=== PATIENT | female | born 1960 | race Caucasian/White ===

== ENCOUNTER → 2016-05-18 | Outpatient (CLI) | payer OTHER ==
[~2016-05-18] MED LIST: ADVAIR DISKUS; ALBU83IN INH; BACT2OIN2 TOP; DEPA1TAB3 PO; FLON0.054; LIDO1PAD EX; LISI-538 PO; NEUR100C PO; OMEP20CA3 PO; ROBA750T4 PO; TIZA2CAP3 PO; TRAM50TA2 PO; VITA500019 PO; VITA50003 PO; ZONI25CA2 PO
[2016-05-18 18:44] LABS: ALBUMIN 3.7 GM/DL (3.2-5.2); ALBUMIN/GLOBULIN RATIO 1.28 (1.00-1.93); ALKALINE PHOSPHATASE 71 U/L (45-117); ALT/SGPT 18 U/L (12-78); ANION GAP 10 MEQ/L (8-16); AST/SGOT 11 U/L (15-37); BILIRUBIN,TOTAL 0.3 MG/DL (0.2-1.0); BLOOD UREA NITROGEN 18 MG/DL (7-18); CALCIUM LEVEL 8.6 MG/DL (8.5-10.1); CARBON DIOXIDE LEVEL 23 MEQ/L (21-32); CHLORIDE LEVEL 107 MEQ/L (98-107); CHOLESTEROL LEVEL 216 MG/DL (<200); CREATININE FOR GFR 0.84 MG/DL (0.55-1.02); GLOMERULAR FILTRATION RATE > 60.0 (>51); GLUCOSE, FASTING 80 MG/DL (70-105); POTASSIUM SERUM 4.3 MEQ/L (3.5-5.1); SODIUM LEVEL 140 MEQ/L (136-145); TOTAL PROTEIN 6.6 GM/DL (6.4-8.2); TRIGLYCERIDES LEVEL 161 MG/DL (<150)
== END ==
LOC: M LAB 15:53
PROVIDERS: ATTEND Physician Assistant Medical
DX: I10 Essential (primary) hypertension (principal)

== ENCOUNTER → 2016-05-19 | Outpatient (CLI) | payer OTHER ==
[2016-05-19 14:12] LABS: BASO % 0.6 % (0.0-1.0); EOS # 0.1 K/mm3 (0.0-0.50); EOS % 1.2 % (0.0-3.0); LYMPH # 3.3 K/mm3 (1.5-4.5); LYMPH % 44.6 % (24.0-44.0); MEAN CORPUSCULAR HEMOGLOBIN 30.3 pg (27.0-33.0); MEAN CORPUSCULAR VOLUME 89.1 fl (80.0-96.0); MONO # 0.4 K/mm3 (0.0-0.8); MONO % 5.3 % (0.0-5.0); NEUTROPHILS # 3.5 K/mm3 (1.8-7.7); NEUTROPHILS % 46.4 % (36.0-66.0); RED CELL DISTRIBUTION WIDTH 12.6 % (11.5-14.5); WHITE BLOOD COUNT 7.4 K/mm3 (4.0-10.0)
== END ==
LOC: M LAB 11:38
PROVIDERS: ATTEND Physician Assistant Medical
DX: I10 Essential (primary) hypertension (principal); E55.9 Vitamin D deficiency, unspecified

== ENCOUNTER → 2016-05-31 | Outpatient (REF) | payer OTHER | LOC: M LAB REF 09:56 | PROVIDERS: ATTEND Physician Assistant | DX: J06.9 Acute upper respiratory infection, unspecified (principal) ==

== ENCOUNTER → 2016-06-30 | Outpatient (CLI) | payer OTHER ==
--- NOTE | 2016-06-30 10:06 | REPMRS ---
Patient History The patient states she had a clinical breast exam in May 2016. Patient is postmenopausal. No known family history of cancer. Digital Mammo Screening Bilat: June 30, 2016 - Exam #: [id number] Bilateral CC and MLO view(s) were taken. Technologist: Zeina Javier, Technologist Prior study comparison: May 12, 2015, digital woman screen mammo, performed at [facility] to [facility]. May 07, 2014, digital woman screen mammo, performed at [facility] to [facility]. FINDINGS: There are scattered fibroglandular densities. There has been no change in the appearance of the mammogram from the prior studies. There is a mild amount of residual fibroglandular tissue which is fairly symmetric. There is no interval development of dominant mass, architectural distortion, or clustered microcalcification suggestive of malignancy. ASSESSMENT: BI-RADS/ACR category 1 mammogram. Negative. Recommendation Routine screening mammogram in 1 year (for women over age 40). This mammogram was interpreted with the aid of an FDA-approved computer-aided dectection system. Electronically Signed By: Rahul Monroe MD 06/30/16 [id number]
[2016-06-30 10:27] LABS: ALBUMIN 3.7 GM/DL (3.2-5.2); ALBUMIN/GLOBULIN RATIO 1.28 (1.00-1.93); ALKALINE PHOSPHATASE 73 U/L (45-117); ALT/SGPT 19 U/L (12-78); ANION GAP 9 MEQ/L (8-16); AST/SGOT 13 U/L (15-37); BILIRUBIN,TOTAL 0.3 MG/DL (0.2-1.0); BLOOD UREA NITROGEN 16 MG/DL (7-18); CALCIUM LEVEL 8.5 MG/DL (8.5-10.1); CARBON DIOXIDE LEVEL 23 MEQ/L (21-32); CHLORIDE LEVEL 107 MEQ/L (98-107); CHOLESTEROL LEVEL 198 MG/DL (<200); CREATININE FOR GFR 0.95 MG/DL (0.55-1.02); GLOMERULAR FILTRATION RATE > 60.0 (>51); GLUCOSE, FASTING 116 MG/DL (70-105); POTASSIUM SERUM 4.6 MEQ/L (3.5-5.1); SODIUM LEVEL 139 MEQ/L (136-145); TOTAL PROTEIN 6.6 GM/DL (6.4-8.2); TRIGLYCERIDES LEVEL 111 MG/DL (<150)
[2016-06-30 14:16] LABS: CONTROL LINE INT CTR LINE PRESENT; HIV SCRN NEGATIVE (NEGATIVE); HIV SCRN1 NEGATIVE (NEGATIVE)
== END ==
LOC: M RAD 08:51
PROVIDERS: ATTEND Physician Assistant Medical
DX: Z12.31 Encounter for screening mammogram for malignant neoplasm of breast (principal); Z11.3 Encounter for screening for infections with a predominantly sexual mode of transmission; E78.2 Mixed hyperlipidemia
CPT/HCPCS: 36415; 80053; 80061; 86803; 87491; 87591; 87806; G0202

== ENCOUNTER → 2016-08-02 | Outpatient (CLI) | payer OTHER ==
[~2016-08-02] MED LIST changes: +BUPIVACAINE HCL 0.25% 30 ML VIAL As Ordered ONE; +ISOVUE-M 300 61% 15ML VIAL (Q9967) As Ordered ONE; +LIDOCAINE 1% SDV INJ 30 ML VIAL As Ordered ONE; +MIDAZOLAM INJ 2 MG/2 ML VIAL (J2250) As Ordered ONE; +dexameTHASONE 10 MG/1 ML VIAL PRES.FREE (J1100) As Ordered ONE; +fentaNYL 100 MCG/2 ML INJECTION (J3010) As Ordered ONE
--- NOTE | 2016-08-02 14:15 | REP ---
PARTIAL LUMBAR SPINE SERIES: 8 views. HISTORY: Transforaminal lumbar epidural injection for pain. 1 minute 32 seconds of fluoroscopy time is reported. FINDINGS: A sequence of eight fluoroscopically obtained intraprocedural last image hold spot images of the lumbar spine documents needle positions and contrast injections associated with injection procedure. Signed by Yunior Boyce MD 08/02/2016 02:54 P
--- NOTE | 2016-08-04 23:55 | ECWPNPC ---
PATIENT NAME: JR CAZARES : 1960 GENDER: FEMALE VISIT DATE: 08/02/2016 DISCHARGE DATE: 08/02/16 1238 VISIT LOCKED DATE TIME: PHYSICIAN: AARON SHRESTHA RESOURCE: AARON SHRESTHA REASON FOR APPOINTMENT 1. TRANSFORAMINAL HISTORY OF PRESENT ILLNESS HISTORY OF PRESENT ILLNESS: PAIN THE PATIENT DESCRIBES THE PAIN... FALL RISK SCREENING: SCREENING :NO FALLS IN THE PAST YEAR CURRENT MEDICATIONS TAKING TRAMADOL HCL 50 MG TABLET 1 ORALLY EVERY 6 HRS PRN FOR PAINMDD 2, NOTES: 08-02-16499 TAKING LIDOCAINE 5 % PATCH 1 PATCH TO INTACT SKIN REMOVE AFTER 12 HOURS EXTERNALLY ONCE A DAY, NOTES: 1 WEEK AGO TAKING GABAPENTIN 300 MG CAPSULE 1 CAPSULE ORALLY THREE TIMES A DAY FOR PAIN, NOTES: 08-02-16499 TAKING TIZANIDINE HCL 2 MG TABLET 1 TABLET NEEDED ORALLY BEFORE BEDTIME FOR SPASMS AND PAIN, NOTES: 08-01-162199 TAKING VITAMIN D CAPSULE ORALLY ONCE A WEEK, NOTES: 07-30-16 TAKING DEPAKOTE ER 750 1 TAB ORALLY BID, NOTES: 08-02-16499 TAKING ZONISAMIDE 100 MG CAPSULE 1 CAPSULE ORALLY AT BEDTIME, NOTES: 08-01-162199 TAKING ATORVASTATIN CALCIUM 20 MG TABLET 1 TABLET ORALLY ONCE A DAY, NOTES: 08-02-16499 TAKING OMEPRAZOLE 20 MG CAPSULE DELAYED RELEASE 1 CAP ORALLY ONCE A DAY, NOTES: 08-02-16499 TAKING SERTRALINE HCL 25 MG TABLET 1 TABLET ORALLY ONCE A DAY, NOTES: 08-02-16499 TAKING LISINOPRIL 20 MG TABLET 1 TABLET ORALLY ONCE A DAY, NOTES: 08-02-16499 TAKING SPIRIVA HANDIHALER 18 MCG CAPSULE 1 CAPSULE BY MOUTH INHALATION ONCE A DAY, NOTES: A WEEK AGO TAKING BUSPIRONE HCL 5 MG TABLET 1 TABLET ORALLY DAILY, NOTES: 08-01-162199 TAKING MAGNESIUM 30 MG TABLET 1 TABLET WITH A MEAL ORALLY ONCE A DAY, NOTES: 08-02-16499 NOT-TAKING TIZANIDINE HCL 2 MG TABLET 1 TO 2 TABLETS NEEDED ORALLY AT BEDTIME FOR SPASM AND PAIN, NOTES: 02/02/16@2100 NOT-TAKING VENTOLIN HFA 108 (90 BASE) MCG/ACT AEROSOL SOLUTION 2 PUFFS INHALATION EVERY 4-6 HOURS NEEDED, NOTES: 07850@1600 NOT-TAKING ALBUTEROL SULFATE (2.5 MG/3ML) 0.083% INHALATION FOUR TIMES A DAY NEEDED NOT-TAKING VALIUM 10 MG TABLET 1 TAB ORALLY DIRECTED, NOTES: USED PRE PROC NOT-TAKING LYRICA 50 MG CAPSULE 1 CAPSULE ORALLY TWICE A DAY NOT-TAKING PERCOCET 5-325 MG TABLET ORALLY DIRECTED NOT-TAKING FLONASE SUSPENSION 1 SPRAY IN EACH NOSTRIL NASALLY BID MEDICATION LIST REVIEWED AND RECONCILED WITH THE PATIENT PAST MEDICAL HISTORY DEPRESSION COPD URINARY INCONTINENCE ALLERGIES IBUPROFEN: NAUSEA/VOMITING SURGICAL HISTORY TUBAL LIGATION 99 CHOLECYSTECTOMY 92 APPENDECTOMY 92 TONSILLECTOMY CHILDHOOD SOCIAL HISTORY GENERAL: TOBACCO USE ARE YOU A:NONSMOKER LEARNING BARRIERS / SPECIAL NEEDS ORIENTED TO PLAN OF CARE: PATIENT, PAIN MANAGEMENT PATIENT, ORIENTED TO PLAN OF CARE: PATIENT, PAIN MANAGEMENT PATIENT. NEW PATIENT PAIN DIARY TODAY'S VISITNOTES FROM 0-10, WHAT LEVEL IS YOUR PAIN TODAY?0 PAIN CLINIC PFS, CLERGY, PUBLIC HEALTH REFERRALS PFS REFERRAL NEEDED?NO CLERGY REFERRAL NEEDED?NO PUBLIC HEALTH REFERRAL NEEDED?NO WAS THE PROVIDER NOTIFIED OF ANY PERTINENT INFO?NO PFS REFERRAL NEEDED?NO CLERGY REFERRAL NEEDED?NO PUBLIC HEALTH REFERRAL NEEDED?NO WAS THE PROVIDER NOTIFIED OF ANY PERTINENT INFO?NO REVIEW OF SYSTEMS CONSTITUTIONAL: ANY CHANGE IN YOUR MEDICAL CONDITION? NO . CHILLS NO . FEVER NO . INFECTION: DO YOU HAVE NEW INFECTIONS? NO . DO YOU HAVE HISTORY OF MRSA? NO . MUSCULOSKELETAL: ANY NEW PATTERNS OF PAIN OR NUMBNESS? YES LEFT NECK PINCHED NERVE . GASTROENTEROLOGY: ANY NEW CHANGE IN BOWEL CONTROL? NO . GENITOURINARY: ANY NEW CHANGE IN BLADDER CONTROL? NO . IS THERE A CHANCE YOU COULD BE ? NO . HEMATOLOGY/LYMPH: DO YOU TAKE ANY BLOOD THINNERS? (FOR EXAMPLE- COUMADIN, PLAVIX, AGGRENOX, PLATEL, PRADAXA, OR XARELTO) NO . WHEN WAS YOUR LAST DOSE? DATE: TIME: . NEUROLOGY: HAVE YOU FALLEN IN THE PAST 6 MONTHS? NO . ANY NEW EXTREMITY NUMBNESS OR WEAKNESS? NO . CARDIOLOGY: DO YOU HAVE A PACEMAKER OR DEFIBRILLATOR? NO . RESPIRATORY: HAVE YOU BEEN SICK IN THE PAST WEEK? NO . FEVER NO . FLU LIKE SYMPTOMS? NO . COUGH NO . INTEGUMENTARY: DO YOU HAVE ANY RASHES OR OPEN SORES? NO . ALLERGIC/IMMUNO: ARE YOU ALLERGIC TO SHELLFISH OR IV DYE? NO . ANY NEW ALLERGIES? NO . PSYCHIATRIC: DO YOU HAVE THOUGHTS OF HURTING YOURSELF OR SOMEONE ELSE? NO . ARE YOU ABUSED, NEGLECTED, OR IN AN UNSAFE ENVIRONMENT? NO . ENDOCRINOLOGY: ARE YOU DIABETIC? NO . OTHER: DO YOU NEED ANY PRESCRIPTIONS? NO . IF YES, PLEASE LIST: ____ . ANY NEW PROBLEMS WITH YOUR MEDICATIONS? NO . WHEN DID YOU LAST EAT? ____1800 LAST NIGHT . WHEN DID YOU LAST DRINK? ____0500 . WHAT DID YOU LAST DRINK? ____WATER 08-02-16 . NAME OF PERSON DRIVING YOU HOME? ____ . DO YOU HAVE ANY OTHER QUESTIONS OR CONCERNS NO . REVIEWED BY: PROVIDER: . VITAL SIGNS WT 184.8 LBS, HT 60 IN, BMI 36.09 INDEX, BP 132/69 MM HG, HR 72 /MIN, RR 16 /MIN, TEMP 97.9 F, OXYGEN SAT % 95%, NA INITIALS SC10:20, REVIEWED BY: KG. ASSESSMENTS INTERVERTEBRAL DISC DISORDERS WITH RADICULOPATHY, LUMBAR REGION - M51.16 (PRIMARY) INTERVERTEBRAL DISC DISORDERS WITH RADICULOPATHY, LUMBOSACRAL REGION - M51.17 PROCEDURES PN LUMBAR TRANSFORAMINAL BLOCKS PRE PROCEDURE DIAGNOSIS LUMBAR DISC DISORDER WITH RADICULOPATHY, LUMBOSACRAL RADICULOPATHY, LUMBAR SPINAL STENOSIS POST PROCEDURE DIAGNOSIS LUMBAR DISC DISORDER WITH RADICULOPATHY, LUMBOSACRAL RADICULOPATHY, LUMBAR SPINAL STENOSIS PROCEDURE RIGHT L4, RIGHT L5, AND RIGHT S1 TRANSFORAMINAL EPIDURAL STEROID INJECTION UNDER FLUOROSCOPIC GUIDANCE SURGEON DR AARON SHRESTHA BILINGUAL SPEECH THERAPIST NONE ANESTHESIA LOCAL PRE PROCEDURE NOTE PATIENT WITH HISTORY OF CHRONIC LOW BACK PAIN. I EVALUATE THE PATIENT AND REVIEWED THE CHART. I WENT OVER THE RISKS, IMPLICATIONS, ALTERNATIVES, AND BENEFITS ASSOCIATED WITH THIS PROCEDURE. THE PATIENT WANTS TO HAVE IV SEDATION DUE TO ANXIETY AND DISCOMFORT THIS PROCEDURE WILL CAUSE HER. THE PATIENT WOULD LIKE TO PROCEED AND GIVE CONSENT TO PERFORMED THE PROCEDURE UNDER IV SEDATION. THE PATIENT DENIES UNEXPLAINABLE WEIGHT LOSS, FEVER, CHILLS, OR CHANGES IN URINARY OR BOWEL CONTROL DESCRIPTION OF PROCEDURE THE PATIENT WAS BROUGHT TO THE PROCEDURE ROOM AND PLACED IN THE PRONE POSITION. THE LUMBOSACRAL AREA WAS CLEANED WITH BETADINE SOLUTION AND DRAPED ASEPTICALLY. THE PROCEDURE WAS DONE UNDER STERILE CONDITIONS. I CHECKED LATERALITY AND THE LEVEL WHERE THE PROCEDURE WAS GOING TO BE PERFORMED WITH THE PATIENT AND THE SUPPORTING STAFF AT THE MOMENT OF THE TIME OUT IN THE PROCEDURE ROOM. UNDER FLUOROSCOPIC GUIDANCE, TARGETS WERE SELECTED AT THE RIGHT TRANSFORAMINAL OPENING OF L4, L5, AND S1. TARGET POINT WAS SELECTED AFTER LATERAL ROTATION AND TILT OF THE MAGNIFIER OF THE C-ARM. LIDOCAINE 0.5% WAS USED TO NUMB THE SKIN AND THE SUBCUTANEOUS TISSUE BELOW IT. AN EPIMED INTRODUCER 18-GAUGE WAS ADVANCED UNTIL WE WENT CLOSE TO THE SELECTED TRANSFORAMINAL OPENINGS. AFTER PROPER POSITION OF THE NEEDLES WAS ACHIEVED, A 22-GAUGE EPIMED NEEDLE WAS PLACED INSIDE OF THE INTRODUCER AND ADVANCED TO THE TRANSFORAMINAL OPENING OF THE SELECTED SITES. WHEN PROPER POSITION OF THE NEEDLE WAS ACHIEVED, ISOVUE M DYE 30%, 0.25 ML, WAS INJECTED SHOWING ADEQUATE SPREAD OF THE DYE. THIS WAS DONE UNDER DIGITAL SUBTRACTION AND ANGIOGRAPHY. THERE WAS NO VASCULAR UPDATE. THEN, A SOLUTION OF 2 ML OF BUPIVACAINE 0.25% AND DEXAMETHASONE 10 MG WAS INJECTED AT EACH SITE. THE PATIENT RECEIVED VERSED 1 MG IV. FACE TO FACE TIME WAS 23 MINUTES. THERE WAS NO EVIDENCE OF BLOOD, PARESTHESIA OR CEREBROSPINAL FLUID DURING THE PROCEDURE. THE PATIENT WAS SENT TO THE RECOVERY ROOM. THE PATIENT WAS MOVING THE EXTREMITIES AND DOING WELL. THERE WAS NO COMPLICATION DURING THE PROCEDURE. FLUOROSCOPY TIME WAS 1 MINUTE AND 32 SECONDS. POST PROCEDURE NOTE THE PROCEDURE DONE WAS DISCUSSED WITH THE PATIENT. THE PATIENT WILL BE SEEN IN A FOLLOW UP IN THE NEXT FEW WEEKS. INSTRUCTIONS WERE GIVEN, QUESTIONS WERE ANSWERED, AND THE PATIENT EXPRESSED UNDERSTANDING AND AGREES WITH THE PLAN. INSTRUCTIONS WERE GIVEN, QUESTIONS WERE ANSWERED, PATIENT REPORTS UNDERSTANDING AND AGREES WITH THE PLAN. I, KRYSTAL VILLALBA, DOCUMENTED THE ABOVE INFORMATION ACTING A SCRIBE FOR DR. SHRESTHA. I HAVE REVIEWED THE ABOVE DOCUMENT, WRITTEN BY KRYSTAL VILLALBA SCRIBRadha AND I VERIFY THAT IT IS ACCURATE. DIAGNOSTIC IMAGING [facility] FLUORO GUIDE SPINE INJECTION (PAIN)[id number] PROCEDURE CODES 94830 INJ FORAMEN EPIDURAL L/S 11360 INJ FORAMEN EPIDURAL ADD-ON 6045F RADXPS IN END [id number] PXD 35651 MOD SED SAME PHYS/QHP 5/>YRS 68682 MOD SED SAME PHYS/QHP EA DISPOSITION & COMMUNICATION FOLLOW UP 3 WEEKS ELECTRONICALLY SIGNED BY AARON SHRESTHA MD ON 08/04/2016 AT 08:33 PM EDT DISCLAIMER : THIS IS A VISIT SUMMARY EXTRACTED FROM THE [employer] CHART. IT IS NOT A COPY OF THE [employer] PROGRESS NOTE. SHON
== END ==
LOC: M PAIN 10:20
PROVIDERS: ATTEND Anesthesiology
DX: M51.16 Intervertebral disc disorders with radiculopathy, lumbar region (principal); M51.17 Intervertebral disc disorders with radiculopathy, lumbosacral region; Z79.891 Long term (current) use of opiate analgesic; Z79.899 Other long term (current) drug therapy
CPT/HCPCS: 64483; 64484; 99152; 99153; J1100; J2250; J3010; Q9967

== ENCOUNTER → 2016-08-13 | Outpatient (CLI) | payer OTHER ==
[~2016-08-13] MED LIST changes: -BUPIVACAINE HCL 0.25% 30 ML VIAL As Ordered ONE; -ISOVUE-M 300 61% 15ML VIAL (Q9967) As Ordered ONE; -LIDOCAINE 1% SDV INJ 30 ML VIAL As Ordered ONE; -MIDAZOLAM INJ 2 MG/2 ML VIAL (J2250) As Ordered ONE; -dexameTHASONE 10 MG/1 ML VIAL PRES.FREE (J1100) As Ordered ONE; -fentaNYL 100 MCG/2 ML INJECTION (J3010) As Ordered ONE
--- NOTE | 2016-08-26 01:11 | ECWPNPC ---
PATIENT NAME: JR CAZARES : 1960 GENDER: FEMALE VISIT DATE: 08/13/2016 DISCHARGE DATE: 08/13/16 1204 VISIT LOCKED DATE TIME: PHYSICIAN: ALDO ANDRE RESOURCE: ALDO ANDRE REASON FOR APPOINTMENT 1. BACK HISTORY OF PRESENT ILLNESS HISTORY OF PRESENT ILLNESS: PAIN THE PATIENT DESCRIBES THE PAIN... FALL RISK SCREENING: SCREENING :NO FALLS IN THE PAST YEAR TODAY'S VISIT: NOTES: RATES PAIN TODAY 8/10. DESCRIBES PAIN CONSTANT WITH INTERMITTANT INCREASES.PT IS S/P RIGHT TRANSFORAMINAL EPIDURAL AT L4, L5, S1 ON 08/02/16. STATES HAD PAIN 8/10 PRIOR, THEN DOWN TO 3/10 FOR 1 1/2 WEEKS AND THEN RETURNED TO 8 /10. PAIN STARTS AT RIGHT SACRUM AND RADIATES TO BUTTUCK TO MID THIGH POSTERIOR. AND SOME LATERALLY. HAS NUMBNESS AND TINGLING IN FEET BILATERALLY. WAS STARTED ON MAG FOR CRAMPING AND NUMBNESS AND TINGLING WHICH HELPED. IS HAVING BOWEL LEAKAGE. WAS STARTED ON IMMODIUM WHICH HELPS. IS ALSO HAVING BLADDER LEAKAGE. IS S/P BLADDER SLING SURGERY WHICH WAS INITIALLY HELPFUL. NOTHING HAS PROVIDED LONG LASTING RELIEF. WAS IN PT LAST YEAR. HAS NOT SEEN A SURGEON FOR BACK ISSUES. CURRENT MEDICATIONS TAKING TRAMADOL HCL 50 MG TABLET 1 ORALLY EVERY 6 HRS PRN FOR PAINMDD 2 TAKING LIDOCAINE 5 % PATCH 1 PATCH TO INTACT SKIN REMOVE AFTER 12 HOURS EXTERNALLY ONCE A DAY TAKING GABAPENTIN 300 MG CAPSULE 1 CAPSULE ORALLY THREE TIMES A DAY FOR PAIN TAKING TIZANIDINE HCL 2 MG TABLET 1 TABLET NEEDED ORALLY BEFORE BEDTIME FOR SPASMS AND PAIN TAKING VITAMIN D 25075 U TABLET ORALLY ONCE A WEEK TAKING DEPAKOTE ER 750 1 TAB ORALLY BID TAKING ZONISAMIDE 100 MG CAPSULE 3 CAPSULE ORALLY AT BEDTIME TAKING ATORVASTATIN CALCIUM 40 MG TABLET 1 TABLET ORALLY ONCE A DAY TAKING OMEPRAZOLE 20 MG CAPSULE DELAYED RELEASE 1 CAP ORALLY ONCE A DAY TAKING SERTRALINE HCL 50 MG TABLET 1 TABLET ORALLY THREE TIMES A DAY TAKING LISINOPRIL 20 MG TABLET 1 TABLET ORALLY ONCE A DAY TAKING BUSPIRONE HCL 5 MG TABLET 1 TABLET ORALLY DAILY TAKING MAGNESIUM 400 MG CAPSULE 1 TABLET WITH A MEAL ORALLY ONCE A DAY TAKING ANORO ELLIPTA 62.5-25 MCG/INH AEROSOL POWDER BREATH ACTIVATED 1 PUFF INHALATION ONCE A DAY TAKING NICOTINE MINI 4 MG LOZENGE 1 LOZENGE NEEDED MOUTH/THROAT TWICE A DAY, NOTES: NOT STARTED YET TAKING SUMATRIPTAN SUCCINATE 25 MG TABLET 1 TABLET NEEDED ORALLY TWICE A DAY TAKING TRAZODONE HCL ER 200 MG 1 TAB ORALLY AT BEDTIME DAILY TAKING VENTOLIN HFA 108 (90 BASE) MCG/ACT AEROSOL SOLUTION 2 PUFFS INHALATION EVERY 4-6 HOURS NEEDED, NOTES: 72596@1600 NOT-TAKING SPIRIVA HANDIHALER 18 MCG CAPSULE 1 CAPSULE BY MOUTH INHALATION ONCE A DAY NOT-TAKING FLONASE SUSPENSION 1 SPRAY IN EACH NOSTRIL NASALLY BID DISCONTINUED TIZANIDINE HCL 2 MG TABLET 1 TO 2 TABLETS NEEDED ORALLY AT BEDTIME FOR SPASM AND PAIN, NOTES: 02/02/16@2100 DISCONTINUED ALBUTEROL SULFATE (2.5 MG/3ML) 0.083% INHALATION FOUR TIMES A DAY NEEDED DISCONTINUED VALIUM 10 MG TABLET 1 TAB ORALLY DIRECTED DISCONTINUED LYRICA 50 MG CAPSULE 1 CAPSULE ORALLY TWICE A DAY DISCONTINUED PERCOCET 5-325 MG TABLET ORALLY DIRECTED MEDICATION LIST REVIEWED AND RECONCILED WITH THE PATIENT PAST MEDICAL HISTORY DEPRESSION COPD URINARY INCONTINENCE ALLERGIES IBUPROFEN: NAUSEA/VOMITING SOCIAL HISTORY GENERAL: PAIN CLINIC PFS, CLERGY, PUBLIC HEALTH REFERRALS CLERGY REFERRAL NEEDED?NO WAS THE PROVIDER NOTIFIED OF ANY PERTINENT INFO?NO PFS REFERRAL NEEDED?NO PUBLIC HEALTH REFERRAL NEEDED?NO PATIENT: ____. REVIEW OF SYSTEMS CONSTITUTIONAL: ANY CHANGE IN YOUR MEDICAL CONDITION? NO . CHILLS NO . FEVER NO . INFECTION: DO YOU HAVE NEW INFECTIONS? NO . DO YOU HAVE HISTORY OF MRSA? NO . MUSCULOSKELETAL: ANY NEW PATTERNS OF PAIN OR NUMBNESS? NO . GASTROENTEROLOGY: ANY NEW CHANGE IN BOWEL CONTROL? HAVING PERSISTANT DIARRHEA WITH LEAKAGE - STARTED ON IMMODIUM BY PCP . GENITOURINARY: ANY NEW CHANGE IN BLADDER CONTROL? INTERMITTANT INCONTINENCE . IS THERE A CHANCE YOU COULD BE ? NO . HEMATOLOGY/LYMPH: DO YOU TAKE ANY BLOOD THINNERS? (FOR EXAMPLE- COUMADIN, PLAVIX, AGGRENOX, PLATEL, PRADAXA, OR XARELTO) NO . WHEN WAS YOUR LAST DOSE? DATE: TIME: . NEUROLOGY: HAVE YOU FALLEN IN THE PAST 6 MONTHS? NO . ANY NEW EXTREMITY NUMBNESS OR WEAKNESS? NO . CARDIOLOGY: DO YOU HAVE A PACEMAKER OR DEFIBRILLATOR? NO . RESPIRATORY: HAVE YOU BEEN SICK IN THE PAST WEEK? NO . FEVER NO . FLU LIKE SYMPTOMS? NO . COUGH NO . INTEGUMENTARY: DO YOU HAVE ANY RASHES OR OPEN SORES? NO . ALLERGIC/IMMUNO: ARE YOU ALLERGIC TO SHELLFISH OR IV DYE? NO . ANY NEW ALLERGIES? NO . PSYCHIATRIC: DO YOU HAVE THOUGHTS OF HURTING YOURSELF OR SOMEONE ELSE? NO . ARE YOU ABUSED, NEGLECTED, OR IN AN UNSAFE ENVIRONMENT? NO . ENDOCRINOLOGY: ARE YOU DIABETIC? NO . OTHER: DO YOU NEED ANY PRESCRIPTIONS? NO . IF YES, PLEASE LIST: ____ . ANY NEW PROBLEMS WITH YOUR MEDICATIONS? NO . WHEN DID YOU LAST EAT? ____ . WHEN DID YOU LAST DRINK? ____ . WHAT DID YOU LAST DRINK? ____ . NAME OF PERSON DRIVING YOU HOME? ____ . DO YOU HAVE ANY OTHER QUESTIONS OR CONCERNS DID NOT BRING BACK PAIN DIARY BUT GOT SOME RELIEF FROM IT. USUALLY A 3/10 SINCE INJECTION, BUT WALKED HERE TODAY AND NOW IS A 8/10. . REVIEWED BY: PROVIDER: ALDO BRYANT . VITAL SIGNS WT 187.8 LBS, HT 60 IN, BMI 36.67 INDEX, BP 132/79 MM HG, HR 71 /MIN, RR 16 /MIN, TEMP 98.2 F, OXYGEN SAT % 95%, NA INITIALS SC 10:53, REVIEWED BY: CM. EXAMINATION GENERAL EXAMINATION: PSYCHALERT , ORIENTED X 3 , APPROPRIATE MOOD AND AFFECT . LUNGS:CLEAR TO AUSCULTATION BILATERALLY. HEART:HEART RATE REGULAR. MUSCULOSKELETAL:MUSCLE STRENGTH TESTING 5/5 BILATERALUPPER EXTREMITIES AND LEFT LOWER EXTREMITIY, 3/5 RIGHT LOWER EXTREMITIY WITH RIGHT FOOT DROP. POINT TENDERNESS OVER LSP AND RIGHT SIJ, SACRUM., TRIGGER POINTS:TIGHT FIBROUS BANDS ACROSS LEFT TRAP. PAIN WITH ELAVATION OF SHOUDER PAST 90 DEGREES . POINT TENDER OVER CSP AND RIGHT OCCIPITAL NOTCH. NEUROLOGIC EXAM:SLIGHT DECREASE IN SANS OVER LEFT DELTOID AND LEFT 3RD FINGER.. ASSESSMENTS CERVICAL RADICULOPATHY AT C5 - M54.12 (PRIMARY) MYALGIA - M79.1 CERVICALGIA - M54.2 TREATMENT CERVICAL RADICULOPATHY AT C5 JAMES SPINE CERVICAL W/AP/FLEX/[id number],SUSAN M 08/13/2016 11:45:12 AM > LEFT UE PAIN RADICULOPATHY TRIGGER POINT 3 + ALDO HOWE 08/13/2016 11:47:01 AM > NECK/LEFT SHOULDER NOTES: CONTINUE CURRENT MEDS,TRIGGER POINT INJECTION: YOUR EXPERIENCE MATERIAL WAS PRINTED. PROCEDURE CODES FA211 ESTABILISHED PATIENT [facility] CHARGE DISPOSITION & COMMUNICATION FOLLOW UP 1 MONTH (REASON: CHECK AUTH FOR TPI/LEFT NECK) ELECTRONICALLY SIGNED BY ARMANDO WALLACE ON 08/25/2016 AT 06:25 PM EDT DISCLAIMER : THIS IS A VISIT SUMMARY EXTRACTED FROM THE [employer] CHART. IT IS NOT A COPY OF THE [employer] PROGRESS NOTE. SHON
== END | disposition home or self-care (01) ==
LOC: M PAIN 10:20
PROVIDERS: ATTEND Nurse Practitioner Family
DX: Z09 Encounter for follow-up examination after completed treatment for conditions other than malignant neoplasm (principal); G89.29 Other chronic pain; M54.12 Radiculopathy, cervical region; M79.1 Myalgia; J44.9 Chronic obstructive pulmonary disease, unspecified; F33.9 Major depressive disorder, recurrent, unspecified; R32 Unspecified urinary incontinence; Z79.899 Other long term (current) drug therapy; Z79.51 Long term (current) use of inhaled steroids; Z88.8 Allergy status to other drugs, medicaments and biological substances

== ENCOUNTER → 2016-08-20 | Outpatient (CLI) | payer OTHER ==
--- NOTE | 2016-08-20 10:49 | REP ---
Cervical spine six views AP and lateral projections: There are no comparisons. Vertebral body heights, interspacing alignment are normal. The prevertebral tubal soft tissues are normal. The facets are normally aligned. The odontoid view is unremarkable. There is no listhesis on flexion or extension. Impression: Negative AP and lateral views of the cervical spine. Given patient symptomatology consider cervical spine MRI. Signed by Rahul Sabillon MD 08/20/2016 10:41 A
== END ==
LOC: M RAD 10:11
PROVIDERS: ATTEND Nurse Practitioner Family
DX: M54.12 Radiculopathy, cervical region (principal)

== ENCOUNTER → 2016-08-24 | Outpatient (REF) | payer OTHER ==
[2016-08-24 15:19] LABS: ALBUMIN/GLOBULIN RATIO 1.29 (1.00-1.93); ALKALINE PHOSPHATASE 84 U/L (45-117); ALT/SGPT 21 U/L (12-78); ANION GAP 7 MEQ/L (8-16); AST/SGOT 13 U/L (15-37); BILIRUBIN,TOTAL 0.4 MG/DL (0.2-1.0); BLOOD UREA NITROGEN 15 MG/DL (7-18); CALCIUM LEVEL 9.4 MG/DL (8.5-10.1); CARBON DIOXIDE LEVEL 28 MEQ/L (21-32); CHLORIDE LEVEL 104 MEQ/L (98-107); CHOLESTEROL LEVEL 243 MG/DL (<200); CREATININE FOR GFR 0.93 MG/DL (0.55-1.02); GLOMERULAR FILTRATION RATE > 60.0 (>51); GLUCOSE, FASTING 111 MG/DL (70-105); POTASSIUM SERUM 4.8 MEQ/L (3.5-5.1); SODIUM LEVEL 139 MEQ/L (136-145); TOTAL PROTEIN 7.1 GM/DL (6.4-8.2); TRIGLYCERIDES LEVEL 229 MG/DL (<150)
== END ==
LOC: M LABNEURO 13:42
PROVIDERS: ATTEND Physician Assistant Medical
DX: E78.2 Mixed hyperlipidemia (principal)

== ENCOUNTER 2016-09-13 10:46 | Emergency (ER) | payer OTHER ==
[~2016-09-13] VITALS: Ht 152.4 cm; Wt 81.6 kg
[2016-09-13] MEDS ORDERED: DEPA1TAB3 PO (11:06)
[2016-09-13] MEDS ORDERED: PRIL20CA9 PO (11:06)
[2016-09-13] MEDS ORDERED: trazadone (11:06)
[2016-09-13] MEDS ORDERED: BUSP15TA47 PO (11:06)
[2016-09-13] MEDS ORDERED: MAGN400C3 PO (11:06)
[2016-09-13] MEDS ORDERED: BREO1INH INH (11:06)
[2016-09-13] MEDS ORDERED: ATOR40TA PO (11:06)
[2016-09-13] MEDS ORDERED: LISI-538 PO (11:06)
[2016-09-13] MEDS ORDERED: MORPHINE 2 MG/ML 1ML SYRINGE IV PRN (11:15)
[2016-09-13] MEDS ORDERED: KETOROLAC 30 MG/ML VIAL (J1885) IV ONE (11:15)
[2016-09-13] MEDS ORDERED: ONDANSETRON 4MG/2ML VIAL (J2405) IV ONE (11:15)
[2016-09-13 12:00] LABS: BASO # 0.1 K/mm3 (0.0-0.2); BASO % 0.7 % (0.0-1.0); EOS # 0.2 K/mm3 (0.0-0.50); EOS % 2.4 % (0.0-3.0); LARGE UNSTAINED CELL # 0.1 K/mm3 (0.0-0.4); LARGE UNSTAINED CELL % 1.5 % (0.0-4.0); LYMPH # 2.9 K/mm3 (1.5-4.5); LYMPH % 32.6 % (24.0-44.0); MEAN CORPUSCULAR HEMOGLOBIN 29.7 pg (27.0-33.0); MEAN CORPUSCULAR HGB CONC 32.8 g/dl (32.0-36.5); MEAN CORPUSCULAR VOLUME 90.5 fl (80.0-96.0); MONO # 0.4 K/mm3 (0.0-0.8); MONO % 4.6 % (0.0-5.0); NEUTROPHILS % 58.3 % (36.0-66.0); PLATELET COUNT, AUTOMATED 204 k/mm3 (150-450); RED CELL DISTRIBUTION WIDTH 12.3 % (11.5-14.5); WHITE BLOOD COUNT 8.5 K/mm3 (4.0-10.0)
[2016-09-13 12:35] LABS: ALBUMIN 3.8 GM/DL (3.2-5.2); ALBUMIN/GLOBULIN RATIO 1.19 (1.00-1.93); ALKALINE PHOSPHATASE 75 U/L (45-117); ALT/SGPT 20 U/L (12-78); ANION GAP 6 MEQ/L (8-16); AST/SGOT 13 U/L (15-37); BILIRUBIN,DIRECT < 0.1 MG/DL (0.0-0.2); BILIRUBIN,TOTAL 0.3 MG/DL (0.2-1.0); BLOOD UREA NITROGEN 13 MG/DL (7-18); CALCIUM LEVEL 8.6 MG/DL (8.5-10.1); CARBON DIOXIDE LEVEL 24 MEQ/L (21-32); CHLORIDE LEVEL 109 MEQ/L (98-107); CREATININE FOR GFR 0.89 MG/DL (0.55-1.02); GLOMERULAR FILTRATION RATE > 60.0 (>51); GLUCOSE, FASTING 94 MG/DL (70-105); POTASSIUM SERUM 4.4 MEQ/L (3.5-5.1); SODIUM LEVEL 139 MEQ/L (136-145)
--- NOTE | 2016-09-13 12:47 | REP ---
CT ABDOMEN AND PELVIS WITHOUT CONTRAST: CT abdomen and pelvis performed without oral or IV contrast. Sagittal and coronal reconstruction images are performed. The visualized lung bases demonstrate no infiltrate. The patient has had a cholecystectomy with multiple clips in the region of the gallbladder fossa. There is no definite evidence of biliary dilatation. The liver, spleen, adrenals, pancreas, and kidneys are grossly unremarkable. No renal, ureteral, or bladder calculus is seen. There is no evidence of hydroureteronephrosis. There are mild atherosclerotic calcifications of the abdominal aorta without aneurysm. There is no adenopathy. There is no free air or free fluid. There is no bowel wall thickening. There is no evidence of a pelvic mass. IMPRESSION: No renal, ureteral or bladder calculus. No hydroureteronephrosis. Signed by Rahul Monroe MD 09/13/2016 05:42 P
[2016-09-13] MEDS ORDERED: NORCOTAB PO (13:09)
[2016-09-13] MEDS ORDERED: ROBA500T PO (13:09)
[2016-09-13 13:22] VITALS: BP 111/65
== END 2016-09-13 13:32 | disposition home or self-care (01) ==
LOC: M ED 11:15
DX: M54.9 Dorsalgia, unspecified (principal); R11.0 Nausea; I10 Essential (primary) hypertension; E78.5 Hyperlipidemia, unspecified; K21.9 Gastro-esophageal reflux disease without esophagitis; F17.210 Nicotine dependence, cigarettes, uncomplicated; Z88.8 Allergy status to other drugs, medicaments and biological substances; Z79.899 Other long term (current) drug therapy; Z79.51 Long term (current) use of inhaled steroids
CPT/HCPCS: 36415; 74176; 80048; 80076; 81001; 83605; 83690; 85025; 96374; 96375; 99282; J1885; J2405

== ENCOUNTER → 2016-09-17 | Outpatient (CLI) | payer OTHER ==
[~2016-09-17] MED LIST changes: +ATOR40TA PO; +BREO1INH INH; +BUSP15TA47 PO; +MAGN400C3 PO; +NORCOTAB PO; +PRIL20CA9 PO; +ROBA500T PO; +trazadone
--- NOTE | 2016-09-21 02:53 | ECWPNPC ---
PATIENT NAME: JR CAZARES : 1960 GENDER: FEMALE VISIT DATE: 09/17/2016 DISCHARGE DATE: 09/17/16 1222 VISIT LOCKED DATE TIME: PHYSICIAN: ALDO ANDRE RESOURCE: ALDO ANDRE REASON FOR APPOINTMENT 1. NECK/BACK HISTORY OF PRESENT ILLNESS HISTORY OF PRESENT ILLNESS: PAIN THE PATIENT DESCRIBES THE PAIN... FALL RISK SCREENING: SCREENING :NO FALLS IN THE PAST YEAR TODAY'S VISIT: NOTES: RATES PAIN TODAY 10/10. WITH THE RIGHT FLANK AREA THE WORST AREA OF PAIN. IS STILL HAVING LEFT NECK PAIN BUT TPI DATE WAS CANCELED DUE TO INSURANCE. HAS SOME "PINCHED NERVE PAIN " IN LEFT ELBOW. DESCRIBES PAIN CONSTANT, ACHING,BURNING, SHARP AND STABBING, TENDER, THROBBING AND SOREWITH SHOOTING PAIN IN LEFT ELBOW AND LEFT HIP/BUTTUCK AREA. CURRENT MEDICATIONS TAKING TRAMADOL HCL 50 MG TABLET 1 ORALLY EVERY 6 HRS PRN FOR PAINMDD 2 TAKING LIDOCAINE 5 % PATCH 1 PATCH TO INTACT SKIN REMOVE AFTER 12 HOURS EXTERNALLY ONCE A DAY TAKING TIZANIDINE HCL 2 MG TABLET 1 TABLET NEEDED ORALLY BEFORE BEDTIME FOR SPASMS AND PAIN TAKING VITAMIN D 86015 U TABLET ORALLY ONCE A WEEK TAKING DEPAKOTE ER 750 1 TAB ORALLY BID TAKING ZONISAMIDE 100 MG CAPSULE 3 CAPSULE ORALLY AT BEDTIME TAKING ATORVASTATIN CALCIUM 40 MG TABLET 1 TABLET ORALLY ONCE A DAY TAKING OMEPRAZOLE 20 MG CAPSULE DELAYED RELEASE 1 CAP ORALLY ONCE A DAY TAKING LISINOPRIL 20 MG TABLET 1 TABLET ORALLY ONCE A DAY TAKING BUSPIRONE HCL 15 MG TABLET 1 TABLET ORALLY THREE TIMES DAILY TAKING MAGNESIUM 400 MG CAPSULE 1 TABLET WITH A MEAL ORALLY ONCE A DAY TAKING ANORO ELLIPTA 62.5-25 MCG/INH AEROSOL POWDER BREATH ACTIVATED 1 PUFF INHALATION ONCE A DAY TAKING NICOTINE MINI 4 MG LOZENGE 1 LOZENGE NEEDED MOUTH/THROAT TWICE A DAY, NOTES: NOT STARTED YET TAKING SUMATRIPTAN SUCCINATE 25 MG TABLET 1 TABLET NEEDED ORALLY TWICE A DAY TAKING TRAZODONE HCL ER 200 MG 1 TAB ORALLY AT BEDTIME DAILY TAKING VENTOLIN HFA 108 (90 BASE) MCG/ACT AEROSOL SOLUTION 2 PUFFS INHALATION EVERY 4-6 HOURS NEEDED, NOTES: 75721@1600 TAKING GABAPENTIN 300 MG CAPSULE 1 CAPSULE ORALLY THREE TIMES A DAY FOR PAIN TAKING METHOCARBAMOL 500 MG TABLET 2 TABLETS ORALLY EVERY 6 HRS NEEDED TAKING HYDROCODONE-ACETAMINOPHEN 5-325 MG TABLET 1 TABLET NEEDED ORALLY EVERY 4 HRS NOT-TAKING SERTRALINE HCL 50 MG TABLET 1 TABLET ORALLY THREE TIMES A DAY NOT-TAKING SPIRIVA HANDIHALER 18 MCG CAPSULE 1 CAPSULE BY MOUTH INHALATION ONCE A DAY NOT-TAKING FLONASE SUSPENSION 1 SPRAY IN EACH NOSTRIL NASALLY BID MEDICATION LIST REVIEWED AND RECONCILED WITH THE PATIENT PAST MEDICAL HISTORY DEPRESSION COPD URINARY INCONTINENCE ALLERGIES IBUPROFEN: NAUSEA/VOMITING SOCIAL HISTORY GENERAL: PAIN CLINIC PFS, CLERGY, PUBLIC HEALTH REFERRALS CLERGY REFERRAL NEEDED?NO WAS THE PROVIDER NOTIFIED OF ANY PERTINENT INFO?NO PFS REFERRAL NEEDED?NO PUBLIC HEALTH REFERRAL NEEDED?NO PATIENT: ____. PT IS A CURRENT SMOKER LESS THAN 1 PPD. PT HAS NICOTINE GUM WHICH SHE HAS NOT STARTED YET. REVIEW OF SYSTEMS CONSTITUTIONAL: ANY CHANGE IN YOUR MEDICAL CONDITION? NO . CHILLS NO . FEVER NO . INFECTION: DO YOU HAVE NEW INFECTIONS? NO . DO YOU HAVE HISTORY OF MRSA? NO . MUSCULOSKELETAL: ANY NEW PATTERNS OF PAIN OR NUMBNESS? YES. PT C/O RIGHT SIDED SUB AXILLARY PAIN, SPONTANIOUSLY STARTED ABOUT 2 WEEKS AGO, DENIES ASSOCIATIOON WITH ANY EVENT, ACTIVITY, OR INJURY. PT HAD FRIEND DRIVE HER TO ER WHERE SHE WAS TREATED WITH HYDROCODONE/APAP &METHOCARBAMOL, HEAT AND ICE TO AREA. PT STATES TREATMENT HAS RELIEVED PAIN FROM 10/10 TO 5/10. SITE IS REDDENED, NO OPEN AREAS NOTED. . GASTROENTEROLOGY: ANY NEW CHANGE IN BOWEL CONTROL? NO . GENITOURINARY: ANY NEW CHANGE IN BLADDER CONTROL? NO . IS THERE A CHANCE YOU COULD BE ? NO . HEMATOLOGY/LYMPH: DO YOU TAKE ANY BLOOD THINNERS? (FOR EXAMPLE- COUMADIN, PLAVIX, AGGRENOX, PLATEL, PRADAXA, OR XARELTO) NO . WHEN WAS YOUR LAST DOSE? DATE: TIME: . NEUROLOGY: HAVE YOU FALLEN IN THE PAST 6 MONTHS? NO . ANY NEW EXTREMITY NUMBNESS OR WEAKNESS? NO . CARDIOLOGY: DO YOU HAVE A PACEMAKER OR DEFIBRILLATOR? NO . RESPIRATORY: HAVE YOU BEEN SICK IN THE PAST WEEK? NO . FEVER NO . FLU LIKE SYMPTOMS? NO . COUGH NO . INTEGUMENTARY: DO YOU HAVE ANY RASHES OR OPEN SORES? NO . ALLERGIC/IMMUNO: ARE YOU ALLERGIC TO SHELLFISH OR IV DYE? NO . ANY NEW ALLERGIES? NO . PSYCHIATRIC: DO YOU HAVE THOUGHTS OF HURTING YOURSELF OR SOMEONE ELSE? NO . ARE YOU ABUSED, NEGLECTED, OR IN AN UNSAFE ENVIRONMENT? NO . ENDOCRINOLOGY: ARE YOU DIABETIC? NO . OTHER: DO YOU NEED ANY PRESCRIPTIONS? NO . IF YES, PLEASE LIST: ____ . ANY NEW PROBLEMS WITH YOUR MEDICATIONS? NO . WHEN DID YOU LAST EAT? ____ . WHEN DID YOU LAST DRINK? ____ . WHAT DID YOU LAST DRINK? ____ . NAME OF PERSON DRIVING YOU HOME? ____ . DO YOU HAVE ANY OTHER QUESTIONS OR CONCERNS NO . REVIEWED BY: PROVIDER: ALDO BRYANT . VITAL SIGNS WT 187.2 LBS, HT 60 IN, BMI 36.56 INDEX, BP 143/71 MM HG, HR 82 /MIN, RR 16 /MIN, TEMP 98.0 F, OXYGEN SAT % 100%, SAFE IN ENV? (Y/N) N, NA INITIALS [id number], REVIEWED BY: EM. EXAMINATION GENERAL EXAMINATION: PSYCHALERT , ORIENTED X 3 . LUNGS:CLEAR TO AUSCULTATION BILATERALLY. HEART:HEART RATE REGULAR. MUSCULOSKELETAL:POINT TENDERNESS OVER CERVICAL SPINOUS PROCESSES AND , TRIGGER POINTS AND TIGHT FIBROUS BANDS OVER LEFT SHOULDER:. TENDER OVER LEFT SIJ AND SACRUM. SLOW TO RISE TO STANDING POSITION, DIFFICULTY NOTED WITH BALANCE. DECREASED LIFT OPERATOR STRENGTH LEFT UPPER EXTREMITY. POOR SHOULDER SHRUG LEFT. . ASSESSMENTS CERVICAL RADICULOPATHY AT C5 - M54.12 (PRIMARY) MYALGIA - M79.1 CERVICALGIA - M54.2 TREATMENT CERVICAL RADICULOPATHY AT C5 REFILL TRAMADOL HCL TABLET, 50 MG, 1, ORALLY, EVERY 6 HRS PRN FOR PAINMDD 2, 30 DAY(S), 60, REFILLS 0 REFILL TIZANIDINE HCL TABLET, 2 MG, 1 TABLET NEEDED, ORALLY, BEFORE BEDTIME FOR SPASMS AND PAIN, 30 DAY(S), 30, REFILLS 2 REFILL GABAPENTIN CAPSULE, 300 MG, 1 CAPSULE, ORALLY, THREE TIMES A DAY FOR PAIN, 30 DAY(S), 90, REFILLS 2 [facility] MRI SPINE, CERVICAL WITHOUT [id number],SUSAN M 09/17/2016 12:01:15 PM > NECK PAIN, CERVICAL RADICULOPATHY NOTES: WILL CHECKINTO INSURANCE ISSUES AND RESCHEDULE FOR TPI,TRIGGER POINT INJECTION MATERIAL WAS PRINTED,TRIGGER POINT INJECTION: YOUR EXPERIENCE MATERIAL WAS PRINTED,TRIGGER POINT INJECTION: YOUR EXPERIENCE MATERIAL WAS PRINTED. CLINICAL NOTES: PT HAS INCREASING WEAKNESS LEFT UPPER EXTREMITY AND INCREASING RADIACULAR SYMPTOMS. HAS BEEN THROUGH PHYSICAL THERAPY AND NSAIDS WITHOUT RELIEF. CERVICAL XRAY HAS BEEN COMPLETED WHICH IS UNABLE TO DEMONSTRATE ANY ISSUES WITHTHE CERVICAL DISCS OR NERVE ROOTS. WE ARE REQUESTING MRI OF CERVICAL SPINE FOR FUTHER EVAL AND TO MAKE NEW TREATMENT DECISIONS. PROCEDURE CODES FA211 ESTABILISHED PATIENT [facility] CHARGE DISPOSITION & COMMUNICATION FOLLOW UP AFTER INJECTION (REASON: CHECK AUTH FOR TPI AND SCHEDULE) ELECTRONICALLY SIGNED BY ARMANDO WALLACE ON 09/20/2016 AT 09:00 AM EDT DISCLAIMER : THIS IS A VISIT SUMMARY EXTRACTED FROM THE [facility] CHART. IT IS NOT A COPY OF THE [facility] PROGRESS NOTE. SHON
== END | disposition home or self-care (01) ==
LOC: M PAIN 11:00
PROVIDERS: ATTEND Nurse Practitioner Family
DX: G89.29 Other chronic pain (principal); M54.12 Radiculopathy, cervical region; M79.1 Myalgia; J44.9 Chronic obstructive pulmonary disease, unspecified; R32 Unspecified urinary incontinence; F33.9 Major depressive disorder, recurrent, unspecified; Z79.899 Other long term (current) drug therapy; Z88.8 Allergy status to other drugs, medicaments and biological substances; F17.210 Nicotine dependence, cigarettes, uncomplicated

== ENCOUNTER → 2016-09-20 | Outpatient (REF) | payer OTHER ==
[2016-09-20 14:38] LABS: ALBUMIN 3.6 GM/DL (3.2-5.2); ALBUMIN/GLOBULIN RATIO 1.13 (1.00-1.93); ALKALINE PHOSPHATASE 77 U/L (45-117); ALT/SGPT 21 U/L (12-78); ANION GAP 5 MEQ/L (8-16); AST/SGOT 10 U/L (15-37); BILIRUBIN,TOTAL 0.4 MG/DL (0.2-1.0); BLOOD UREA NITROGEN 19 MG/DL (7-18); CALCIUM LEVEL 9.1 MG/DL (8.5-10.1); CARBON DIOXIDE LEVEL 30 MEQ/L (21-32); CHLORIDE LEVEL 107 MEQ/L (98-107); CHOLESTEROL LEVEL 179 MG/DL (<200); CREATININE FOR GFR 0.99 MG/DL (0.55-1.02); GLOMERULAR FILTRATION RATE > 60.0 (>51); GLUCOSE, FASTING 106 MG/DL (70-105); POTASSIUM SERUM 4.4 MEQ/L (3.5-5.1); SODIUM LEVEL 142 MEQ/L (136-145); TOTAL PROTEIN 6.8 GM/DL (6.4-8.2); TRIGLYCERIDES LEVEL 153 MG/DL (<150)
== END ==
LOC: M LABNEURO 13:23
PROVIDERS: ATTEND Physician Assistant Medical
DX: E78.2 Mixed hyperlipidemia (principal)

== ENCOUNTER → 2016-10-05 | Outpatient (CLI) | payer OTHER ==
[~2016-10-05] MED LIST changes: +BUPIVACAINE HCL 0.25% 10 ML VIAL As Ordered ONE; +BUPIVACAINE HCL 0.25% 30 ML VIAL As Ordered ONE; +TRIAMCINOLONE ACETONIDE SUSP 40 MG/ML VIAL (J3301) As Ordered ONE; +diazePAM 5 MG TAB As Ordered ONE; +oxyCODONE 5MG TAB As Ordered ONE
--- NOTE | 2016-10-17 23:51 | ECWPNPC ---
PATIENT NAME: JR CAZARES : 1960 GENDER: FEMALE VISIT DATE: 10/05/2016 DISCHARGE DATE: 10/05/16 1057 VISIT LOCKED DATE TIME: PHYSICIAN: AARON SHRESTHA RESOURCE: AARON SHRESTHA REASON FOR APPOINTMENT 1. L NECK/SHOULDER HISTORY OF PRESENT ILLNESS HISTORY OF PRESENT ILLNESS: PAIN THE PATIENT DESCRIBES THE PAIN... FALL RISK SCREENING: SCREENING :NO FALLS IN THE PAST YEAR CURRENT MEDICATIONS TAKING LIDOCAINE 5 % PATCH 1 PATCH TO INTACT SKIN REMOVE AFTER 12 HOURS EXTERNALLY ONCE A DAY TAKING VITAMIN D 16744 U TABLET ORALLY ONCE A WEEK, NOTES: LAST Tuesday TAKING DEPAKOTE ER 750 1 TAB ORALLY BID, NOTES: 10-05-16599 TAKING ZONISAMIDE 100 MG CAPSULE 3 CAPSULE ORALLY AT BEDTIME TAKING ATORVASTATIN CALCIUM 40 MG TABLET 1 TABLET ORALLY ONCE A DAY, NOTES: 10-05-16599 TAKING OMEPRAZOLE 20 MG CAPSULE DELAYED RELEASE 1 CAP ORALLY ONCE A DAY, NOTES: 10-05-16599 TAKING LISINOPRIL 20 MG TABLET 1 TABLET ORALLY ONCE A DAY, NOTES: 10-05-16599 TAKING BUSPIRONE HCL 15 MG TABLET 1 TABLET ORALLY THREE TIMES DAILY, NOTES: 10-05-16599 TAKING MAGNESIUM 400 MG CAPSULE 1 TABLET WITH A MEAL ORALLY ONCE A DAY, NOTES: 10-05-16 TAKING ANORO ELLIPTA 62.5-25 MCG/INH AEROSOL POWDER BREATH ACTIVATED 1 PUFF INHALATION ONCE A DAY, NOTES: 10-04-16799 TAKING SUMATRIPTAN SUCCINATE 25 MG TABLET 1 TABLET NEEDED ORALLY TWICE A DAY, NOTES: 09-27-16899 TAKING TRAZODONE HCL ER 200 MG 1 TAB ORALLY AT BEDTIME DAILY, NOTES: 10-04-162099 TAKING TRAMADOL HCL 50 MG TABLET 1 ORALLY EVERY 6 HRS PRN FOR PAINMDD 2, NOTES: 10-04-162099 TAKING TIZANIDINE HCL 2 MG TABLET 1 TABLET NEEDED ORALLY BEFORE BEDTIME FOR SPASMS AND PAIN, NOTES: 10-04-162099 TAKING GABAPENTIN 300 MG CAPSULE 1 CAPSULE ORALLY THREE TIMES A DAY FOR PAIN, NOTES: 10-05-16599 NOT-TAKING NICOTINE MINI 4 MG LOZENGE 1 LOZENGE NEEDED MOUTH/THROAT TWICE A DAY, NOTES: NOT STARTED YET NOT-TAKING VENTOLIN HFA 108 (90 BASE) MCG/ACT AEROSOL SOLUTION 2 PUFFS INHALATION EVERY 4-6 HOURS NEEDED, NOTES: 09106@1600 NOT-TAKING METHOCARBAMOL 500 MG TABLET 2 TABLETS ORALLY EVERY 6 HRS NEEDED, NOTES: 5- NOT-TAKING HYDROCODONE-ACETAMINOPHEN 5-325 MG TABLET 1 TABLET NEEDED ORALLY EVERY 4 HRS NOT-TAKING SERTRALINE HCL 50 MG TABLET 1 TABLET ORALLY THREE TIMES A DAY NOT-TAKING SPIRIVA HANDIHALER 18 MCG CAPSULE 1 CAPSULE BY MOUTH INHALATION ONCE A DAY NOT-TAKING FLONASE SUSPENSION 1 SPRAY IN EACH NOSTRIL NASALLY BID MEDICATION LIST REVIEWED AND RECONCILED WITH THE PATIENT PAST MEDICAL HISTORY DEPRESSION COPD URINARY INCONTINENCE ALLERGIES IBUPROFEN: NAUSEA/VOMITING REVIEW OF SYSTEMS CONSTITUTIONAL: ANY CHANGE IN YOUR MEDICAL CONDITION? NO . CHILLS NO . FEVER NO . INFECTION: DO YOU HAVE NEW INFECTIONS? NO . DO YOU HAVE HISTORY OF MRSA? NO . MUSCULOSKELETAL: ANY NEW PATTERNS OF PAIN OR NUMBNESS? NO . GASTROENTEROLOGY: ANY NEW CHANGE IN BOWEL CONTROL? NO . GENITOURINARY: ANY NEW CHANGE IN BLADDER CONTROL? NO . IS THERE A CHANCE YOU COULD BE ? NO . HEMATOLOGY/LYMPH: DO YOU TAKE ANY BLOOD THINNERS? (FOR EXAMPLE- COUMADIN, PLAVIX, AGGRENOX, PLATEL, PRADAXA, OR XARELTO) NO . WHEN WAS YOUR LAST DOSE? DATE: TIME: . NEUROLOGY: HAVE YOU FALLEN IN THE PAST 6 MONTHS? NO . ANY NEW EXTREMITY NUMBNESS OR WEAKNESS? NO . CARDIOLOGY: DO YOU HAVE A PACEMAKER OR DEFIBRILLATOR? NO . RESPIRATORY: HAVE YOU BEEN SICK IN THE PAST WEEK? NO . FEVER NO . FLU LIKE SYMPTOMS? NO . COUGH NO . INTEGUMENTARY: DO YOU HAVE ANY RASHES OR OPEN SORES? NO . ALLERGIC/IMMUNO: ARE YOU ALLERGIC TO SHELLFISH OR IV DYE? NO . ANY NEW ALLERGIES? NO . PSYCHIATRIC: DO YOU HAVE THOUGHTS OF HURTING YOURSELF OR SOMEONE ELSE? NO . ARE YOU ABUSED, NEGLECTED, OR IN AN UNSAFE ENVIRONMENT? NO . ENDOCRINOLOGY: ARE YOU DIABETIC? NO . OTHER: DO YOU NEED ANY PRESCRIPTIONS? NO . IF YES, PLEASE LIST: ____ . ANY NEW PROBLEMS WITH YOUR MEDICATIONS? NO . WHEN DID YOU LAST EAT? ____5 PM LAST NIGHT 10-04-16 . WHEN DID YOU LAST DRINK? ____0600 . WHAT DID YOU LAST DRINK? ____WATWER . NAME OF PERSON DRIVING YOU HOME? ____SON OR DAUGHTER OR FIANCI . DO YOU HAVE ANY OTHER QUESTIONS OR CONCERNS NO . REVIEWED BY: PROVIDER: . VITAL SIGNS WT 187.2 LBS, HT 60 IN, BMI 36.56 INDEX, BP 125/74 MM HG, HR 83 /MIN, RR 16 /MIN, TEMP 97.9 F, OXYGEN SAT % 95%, SAFE IN ENV? (Y/N) YES, NA INITIALS SC 08:44, REVIEWED BY: KG. ASSESSMENTS MYALGIA - M79.1 (PRIMARY) PROCEDURES PN TRIGGER POINT INJECTION WITH STEROIDS PRE PROCEDURE DIAGNOSIS 1. MYALGIA 2. PAIN AT LEFT NECK AREA AND LEFT SHOULDER AREA POST PROCEDURE DIAGNOSIS 1. MYALGIA 2. PAIN AT LEFT NECK AREA AND LEFT SHOULDER AREA PROCEDURE TRIGGER POINT INJECTION AT LEFT NECK AREA AND LEFT SHOULDER AREA SURGEON DR. AARON SHRESTHA CUSTOMER EXPERIENCE CONSULTANT NONE ANESTHESIA LOCAL PRE PROCEDURE NOTE THE PATIENT HAS A HISTORY OF CHRONIC PAIN AT THE LEFT NECK AREA AND LEFT SHOULDER AREA. I EVALUATE THE PATIENT AND REVIEWED THE CHART. THERE IS EVIDENCE OF BANDS OF TISSUE WITH RESTRICTION OF MOVEMENT AND PRESENCE OF TRIGGER POINT AT THE AFFECTED AREA. I WENT OVER THE RISKS, ALTERNATIVES, AND BENEFITS ASSOCIATED WITH THIS PROCEDURE. THE PATIENT WOULD LIKE TO PROCEED AND GIVE CONSENT TO PERFORMED THE PROCEDURE. THE PATIENT DENIES UNEXPLAINABLE WEIGHT LOSS, FEVER, CHILLS, OR NEW CHANGES IN URINARY OR BOWEL CONTROL DESCRIPTION OF PROCEDURE THE PATIENT WAS BROUGHT TO THE PROCEDURE ROOM AND PLACED IN THE SITTING POSITION. THE AREA WAS CLEANED WITH ALCOHOL. THE PROCEDURE WAS DONE USING ASEPTIC STERILE TECHNIQUE. I CHECKED LATERALITY AND THE LEVEL WHERE THE PROCEDURE WAS GOING TO BE PERFORMED WITH THE PATIENT AND THE SUPPORTING STAFF AT THE MOMENT OF THE TIME OUT IN THE PROCEDURE ROOM. USING A 25-GAUGE NEEDLE, TRIGGER POINTS WERE INJECTED AT THE LEFT NECK AREA AND LEFT SHOULDER AREA WITH A TOTAL OF 40 ML OF BUPIVACAINE 0.25% AND KENALOG 40 MG. THERE WAS NO EVIDENCE OF BLOOD, PARESTHESIA OR CEREBROSPINAL FLUID DURING THE PROCEDURE. THE PATIENT WAS SENT TO THE RECOVERY ROOM. THE PATIENT WAS MOVING THE EXTREMITIES AND DOING WELL. THERE WAS NO COMPLICATION DURING THE PROCEDURE POST PROCEDURE NOTE THE PATIENT WILL BE SEEN IN A FOLLOW UP IN THE NEXT FEW WEEKS. INSTRUCTIONS WERE GIVEN, QUESTIONS WERE ANSWERED, AND THE PATIENT EXPRESSED UNDERSTANDING AND AGREES WITH THE PLAN. I, JESUS SCHULER, DOCUMENTED THE ABOVE INFORMATION ACTING A SCRIBE FOR DR. SHRESTHA. I HAVE REVIEWED THE ABOVE DOCUMENT, WRITTEN BY JESUS PARSONS AND I VERIFY THAT IT IS ACCURATE PROCEDURE CODES 91193 INJ TRIGGER POINT / MUSCL DISPOSITION & COMMUNICATION FOLLOW UP 3 WEEKS ELECTRONICALLY SIGNED BY AARON SHRESTHA MD ON 10/17/2016 AT 05:44 PM EDT DISCLAIMER : THIS IS A VISIT SUMMARY EXTRACTED FROM THE [employer] CHART. IT IS NOT A COPY OF THE [employer] PROGRESS NOTE. SHON
== END | disposition home or self-care (01) ==
LOC: M PAIN 08:30
PROVIDERS: ATTEND Anesthesiology
DX: G89.29 Other chronic pain (principal); M79.1 Myalgia; F33.9 Major depressive disorder, recurrent, unspecified; R32 Unspecified urinary incontinence; Z79.899 Other long term (current) drug therapy; Z79.51 Long term (current) use of inhaled steroids; Z88.8 Allergy status to other drugs, medicaments and biological substances

== ENCOUNTER → 2016-10-07 | Outpatient (CLI) | payer OTHER ==
[~2016-10-07] MED LIST changes: -BUPIVACAINE HCL 0.25% 10 ML VIAL As Ordered ONE; -BUPIVACAINE HCL 0.25% 30 ML VIAL As Ordered ONE; -TRIAMCINOLONE ACETONIDE SUSP 40 MG/ML VIAL (J3301) As Ordered ONE; -diazePAM 5 MG TAB As Ordered ONE; -oxyCODONE 5MG TAB As Ordered ONE
--- NOTE | 2016-10-07 09:45 | REP ---
?MR CERVICAL SPINE WITHOUT CONTRAST: HISTORY: Radiculopathy. A disc bulge is present at the C5-6 level. There is minimal effacement of the thecal sac without spinal cord compression. The C5 neural foramina are patent. A disc bulge is present at the C6-7 level. There is minimal effacement of the thecal sac without spinal cord compression. The C6 neural foramina are patent. There is no other disc bulge or herniation. The remaining neural foramina are patent. The spinal cord is normal in signal intensity. Normal signal intensity is present in the cervical vertebral bodies. IMPRESSION: There is cervical spondylosis at the C5-6 and C6-7 levels without spinal cord compression. Signed by Davis Goel MD 10/07/2016 10:18 A
== END ==
LOC: M RAD 07:20
PROVIDERS: ATTEND Nurse Practitioner Family
DX: M54.12 Radiculopathy, cervical region (principal); M47.892 Other spondylosis, cervical region

== ENCOUNTER → 2016-10-26 | Outpatient (CLI) | payer OTHER ==
[~2016-10-26] MED LIST changes: -ATOR40TA PO; +ATOR40TA75 PO; +BACT2OIN10 TOP; -BACT2OIN2 TOP; +VITA1CAP40 PO; -VITA50003 PO
--- NOTE | 2016-11-13 00:40 | ECWPNPC ---
PATIENT NAME: JR CAZARES : 1960 GENDER: FEMALE VISIT DATE: 10/26/2016 DISCHARGE DATE: 10/26/16 1109 VISIT LOCKED DATE TIME: PHYSICIAN: ALDO ANDRE RESOURCE: ALDO ANDRE HISTORY OF PRESENT ILLNESS HISTORY OF PRESENT ILLNESS: PAIN THE PATIENT DESCRIBES THE PAIN... FALL RISK SCREENING: SCREENING :NO FALLS IN THE PAST YEAR TODAY'S VISIT: NOTES: IS S/P TPI TO LEFT NECK AND SHOULDER AREA WITH STEROIDS ON 10/05/16. WORST AREA OF PAIN ISRIGHT LOW BACK AND BUTTUCKRATES PAIN TODAY 4/10 AT NECK AND SHOULDER AND 6/10 IN LOW BACK. DESCRIBES PAIN CONSTANT, ACHING, BURNING, SHARP AND STABBING, TENDER, THROBBING AND SHOOTING.. CURRENT MEDICATIONS TAKING LIDOCAINE 5 % PATCH 1 PATCH TO INTACT SKIN REMOVE AFTER 12 HOURS EXTERNALLY ONCE A DAY TAKING VITAMIN D 74427 U TABLET ORALLY ONCE A WEEK TAKING DEPAKOTE ER 750 1 TAB ORALLY BID TAKING ZONISAMIDE 100 MG CAPSULE 3 CAPSULE ORALLY AT BEDTIME TAKING ATORVASTATIN CALCIUM 40 MG TABLET 1 TABLET ORALLY ONCE A DAY TAKING OMEPRAZOLE 20 MG CAPSULE DELAYED RELEASE 1 CAP ORALLY ONCE A DAY TAKING LISINOPRIL 20 MG TABLET 1 TABLET ORALLY ONCE A DAY TAKING BUSPIRONE HCL 15 MG TABLET 1 TABLET ORALLY THREE TIMES DAILY TAKING MAGNESIUM 400 MG CAPSULE 1 TABLET WITH A MEAL ORALLY ONCE A DAY TAKING ANORO ELLIPTA 62.5-25 MCG/INH AEROSOL POWDER BREATH ACTIVATED 1 PUFF INHALATION ONCE A DAY TAKING SUMATRIPTAN SUCCINATE 25 MG TABLET 1 TABLET NEEDED ORALLY TWICE A DAY TAKING TRAMADOL HCL 50 MG TABLET 1 ORALLY EVERY 6 HRS PRN FOR PAINMDD 2 TAKING TIZANIDINE HCL 2 MG TABLET 1 TABLET NEEDED ORALLY BEFORE BEDTIME FOR SPASMS AND PAIN TAKING GABAPENTIN 300 MG CAPSULE 1 CAPSULE ORALLY THREE TIMES A DAY FOR PAIN TAKING TRAZODONE HCL 150 MG TABLET 1 TAB ORALLY ONCE A DAY NOT-TAKING TRAZODONE HCL ER 200 MG 1 TAB ORALLY AT BEDTIME DAILY NOT-TAKING NICOTINE MINI 4 MG LOZENGE 1 LOZENGE NEEDED MOUTH/THROAT TWICE A DAY, NOTES: NOT STARTED YET NOT-TAKING VENTOLIN HFA 108 (90 BASE) MCG/ACT AEROSOL SOLUTION 2 PUFFS INHALATION EVERY 4-6 HOURS NEEDED, NOTES: 64874@1600 NOT-TAKING METHOCARBAMOL 500 MG TABLET 2 TABLETS ORALLY EVERY 6 HRS NEEDED, NOTES: 5- NOT-TAKING HYDROCODONE-ACETAMINOPHEN 5-325 MG TABLET 1 TABLET NEEDED ORALLY EVERY 4 HRS NOT-TAKING SERTRALINE HCL 50 MG TABLET 1 TABLET ORALLY THREE TIMES A DAY NOT-TAKING SPIRIVA HANDIHALER 18 MCG CAPSULE 1 CAPSULE BY MOUTH INHALATION ONCE A DAY NOT-TAKING FLONASE SUSPENSION 1 SPRAY IN EACH NOSTRIL NASALLY BID MEDICATION LIST REVIEWED AND RECONCILED WITH THE PATIENT PAST MEDICAL HISTORY DEPRESSION COPD URINARY INCONTINENCE ALLERGIES IBUPROFEN: NAUSEA/VOMITING REVIEW OF SYSTEMS REVIEWED BY: PROVIDER: SHERRY BRYANT . CONSTITUTIONAL: ANY CHANGE IN YOUR MEDICAL CONDITION? NO . CHILLS NO . FEVER NO . INFECTION: DO YOU HAVE NEW INFECTIONS? NO . DO YOU HAVE HISTORY OF MRSA? NO . MUSCULOSKELETAL: ANY NEW PATTERNS OF PAIN OR NUMBNESS? NO . GASTROENTEROLOGY: ANY NEW CHANGE IN BOWEL CONTROL? NO . GENITOURINARY: ANY NEW CHANGE IN BLADDER CONTROL? NO . IS THERE A CHANCE YOU COULD BE ? NO . HEMATOLOGY/LYMPH: DO YOU TAKE ANY BLOOD THINNERS? (FOR EXAMPLE- COUMADIN, PLAVIX, AGGRENOX, PLATEL, PRADAXA, OR XARELTO) NO . WHEN WAS YOUR LAST DOSE? DATE: TIME: . NEUROLOGY: HAVE YOU FALLEN IN THE PAST 6 MONTHS? NO . ANY NEW EXTREMITY NUMBNESS OR WEAKNESS? NO . CARDIOLOGY: DO YOU HAVE A PACEMAKER OR DEFIBRILLATOR? NO . RESPIRATORY: HAVE YOU BEEN SICK IN THE PAST WEEK? NO . FEVER NO . FLU LIKE SYMPTOMS? NO . CHRONIC LUNG DISEASES ON INHALERS, FREQ COUGH WITH PRODUCTION . COUGH YES WITH PRODUCTION OF YELLOW MUCOUS . INTEGUMENTARY: DO YOU HAVE ANY RASHES OR OPEN SORES? NO . ALLERGIC/IMMUNO: ARE YOU ALLERGIC TO SHELLFISH OR IV DYE? NO . ANY NEW ALLERGIES? NO . PSYCHIATRIC: DO YOU HAVE THOUGHTS OF HURTING YOURSELF OR SOMEONE ELSE? NO . ARE YOU ABUSED, NEGLECTED, OR IN AN UNSAFE ENVIRONMENT? NO . ENDOCRINOLOGY: ARE YOU DIABETIC? NO . OTHER: DO YOU NEED ANY PRESCRIPTIONS? NO . IF YES, PLEASE LIST: ____ . ANY NEW PROBLEMS WITH YOUR MEDICATIONS? NO . WHEN DID YOU LAST EAT? ____ . WHEN DID YOU LAST DRINK? ____ . WHAT DID YOU LAST DRINK? ____ . NAME OF PERSON DRIVING YOU HOME? ____ . DO YOU HAVE ANY OTHER QUESTIONS OR CONCERNS NO . VITAL SIGNS WT 185.0 LBS, HT 60 IN, BMI 36.13 INDEX, BP 131/73 MM HG, HR 73 /MIN, RR 16 /MIN, TEMP 98.3 F, OXYGEN SAT % 96%, NA INITIALS TL 1017, REVIEWED BY: SUZANNE. EXAMINATION GENERAL EXAMINATION: LUNGS:RHONCHI LEFT LOWER LOBE, MOIST COUGH WITH DEEP BREATH. HEART:HEART RATE REGULAR. MUSCULOSKELETAL:TENDER TO PALPATION OVER RIGHT LUMBOSACRAL AXIS. TRIGGER POINTS AND TIGHT FIBROUS BANDS IDENTIFIED OVER C7 PROMINENCE, LEFT SCAPULA/TRAPEZIUS REGION. TENDER WITH PALPATION OVER LEFT TROCANTER AND LEFT KNEE. SLOW TO RISE TO STANDING POSITION. POSTURE UPRIGHT, GAIT SLOW.. DIAGNOSTIC TESTS REVIEWEDMRI OD CERVICAL SPINE COMPLETED10/07/16 DEMONSTRATES CERVICAL SPONDYLOSIS AT C5-6 AND C67 WITHOUT SPINAL CORD COMPRESSION. ASSESSMENTS CERVICAL RADICULOPATHY AT C5 - M54.12 (PRIMARY) MYALGIA - M79.1 CERVICALGIA - M54.2 TREATMENT CERVICAL RADICULOPATHY AT C5 TRIGGER POINT 3 + ALDO HOWE 10/26/2016 11:00:07 AM > LOW BACK RIGHT NOTES: WALK DAILY. DO STRETCHES. ICE TO PAINFUL AREAS NEEDED. PROCEDURE CODES FA211 ESTABILISHED PATIENT [facility] FACILITY CHARGE DISPOSITION & COMMUNICATION FOLLOW UP AFTER INJECTION ELECTRONICALLY SIGNED BY ARMANDO WALLACE ON 11/12/2016 AT 04:14 PM EDT DISCLAIMER : THIS IS A VISIT SUMMARY EXTRACTED FROM THE [employer] CHART. IT IS NOT A COPY OF THE [employer] PROGRESS NOTE. SHON
== END | disposition home or self-care (01) ==
LOC: M PAIN 11:00
PROVIDERS: ATTEND Nurse Practitioner Family
DX: G89.29 Other chronic pain (principal); M54.12 Radiculopathy, cervical region; M79.1 Myalgia; F33.9 Major depressive disorder, recurrent, unspecified; J44.9 Chronic obstructive pulmonary disease, unspecified; R32 Unspecified urinary incontinence; Z79.899 Other long term (current) drug therapy; Z79.51 Long term (current) use of inhaled steroids; Z88.8 Allergy status to other drugs, medicaments and biological substances

== ENCOUNTER → 2016-11-09 | Outpatient (CLI) | payer OTHER ==
[~2016-11-09] MED LIST changes: +ATOR40TA PO; -ATOR40TA75 PO; -BACT2OIN10 TOP; +BACT2OIN2 TOP; -VITA1CAP40 PO; +VITA50003 PO
--- NOTE | 2016-11-09 14:23 | REP ---
Clinical: Acute bronchitis . Comparison: 03/06/2015 . Technique: PA and lateral. Findings: The cardiac silhouette is upper limits of normal. The remainder of the mediastinum appears normal. The lung nagel are clear and without acute consolidation, effusion, or pneumothorax. The skeletal structures are intact and normal. Impression: 1. No acute cardiopulmonary process. Signed by Abdiaziz Lin MD 11/09/2016 02:15 P
== END ==
LOC: M RAD 11:31
PROVIDERS: ATTEND Physician Assistant Medical
DX: J20.9 Acute bronchitis, unspecified (principal)

== ENCOUNTER → 2016-11-22 | Outpatient (CLI) | payer OTHER ==
[~2016-11-22] MED LIST changes: -ATOR40TA PO; +ATOR40TA75 PO; +BACT2OIN10 TOP; -BACT2OIN2 TOP; +BUPIVACAINE HCL 0.25% 10 ML VIAL As Ordered ONE; +BUPIVACAINE HCL 0.25% 30 ML VIAL As Ordered ONE; +TRIAMCINOLONE ACETONIDE SUSP 40 MG/ML VIAL (J3301) As Ordered ONE; +VITA1CAP40 PO; -VITA50003 PO; +diazePAM 5 MG TAB As Ordered ONE; +oxyCODONE 5MG TAB As Ordered ONE
--- NOTE | 2016-11-28 23:53 | ECWPNPC ---
PATIENT NAME: JR CAZARES : 1960 GENDER: FEMALE VISIT DATE: 11/22/2016 DISCHARGE DATE: 11/22/16938 VISIT LOCKED DATE TIME: PHYSICIAN: AARON SHRESTHA RESOURCE: AARON SHRESTHA REASON FOR APPOINTMENT 1. LOW BACK RIGHT HISTORY OF PRESENT ILLNESS HISTORY OF PRESENT ILLNESS: PAIN THE PATIENT DESCRIBES THE PAIN... FALL RISK SCREENING: SCREENING :NO FALLS IN THE PAST YEAR CURRENT MEDICATIONS TAKING LIDOCAINE 5 % PATCH 1 PATCH TO INTACT SKIN REMOVE AFTER 12 HOURS EXTERNALLY ONCE A DAY, NOTES: 11/20/16 TAKING VITAMIN D 43298 U TABLET ORALLY ONCE A WEEK, NOTES: 11/19/16 TAKING DEPAKOTE ER 750 1 TAB ORALLY BID, NOTES: 11/22/16499 TAKING ZONISAMIDE 100 MG CAPSULE 3 CAPSULE ORALLY AT BEDTIME, NOTES: 11/21/162199 TAKING ATORVASTATIN CALCIUM 40 MG TABLET 1 TABLET ORALLY ONCE A DAY, NOTES: 11/22/16499 TAKING OMEPRAZOLE 20 MG CAPSULE DELAYED RELEASE 1 CAP ORALLY ONCE A DAY, NOTES: 11/22/16499 TAKING LISINOPRIL 20 MG TABLET 1 TABLET ORALLY ONCE A DAY, NOTES: 11/22/16499 TAKING BUSPIRONE HCL 30 MG TABLET 1 TABLET ORALLY BID, NOTES: 11/22/16499 TAKING MAGNESIUM 400 MG CAPSULE 1 TABLET WITH A MEAL ORALLY ONCE A DAY, NOTES: 11/22/16499 TAKING ANORO ELLIPTA 62.5-25 MCG/INH AEROSOL POWDER BREATH ACTIVATED 1 PUFF INHALATION ONCE A DAY, NOTES: 11/22/16499 TAKING SUMATRIPTAN SUCCINATE 25 MG TABLET 1 TABLET NEEDED ORALLY TWICE A DAY, NOTES: 11/21/162199 TAKING TRAMADOL HCL 50 MG TABLET 1 ORALLY EVERY 6 HRS PRN FOR PAINMDD 2, NOTES: 11/21/162199 TAKING TIZANIDINE HCL 2 MG TABLET 1 TABLET NEEDED ORALLY BEFORE BEDTIME FOR SPASMS AND PAIN, NOTES: 11/21/162199 TAKING GABAPENTIN 300 MG CAPSULE 1 CAPSULE ORALLY THREE TIMES A DAY FOR PAIN, NOTES: 11/22/16499 TAKING TRAZODONE HCL 150 MG TABLET 1 TAB ORALLY ONCE A DAY, NOTES: 11/21/162199 TAKING SERTRALINE HCL 100 MG TABLET 1 1/2 TABLET ORALLY BEFORE BEDTIME, NOTES: NOT-TAKING TRAZODONE HCL ER 200 MG 1 TAB ORALLY AT BEDTIME DAILY NOT-TAKING NICOTINE MINI 4 MG LOZENGE 1 LOZENGE NEEDED MOUTH/THROAT TWICE A DAY, NOTES: NOT STARTED YET NOT-TAKING VENTOLIN HFA 108 (90 BASE) MCG/ACT AEROSOL SOLUTION 2 PUFFS INHALATION EVERY 4-6 HOURS NEEDED, NOTES: 44264@1600 NOT-TAKING METHOCARBAMOL 500 MG TABLET 2 TABLETS ORALLY EVERY 6 HRS NEEDED, NOTES: 5- NOT-TAKING HYDROCODONE-ACETAMINOPHEN 5-325 MG TABLET 1 TABLET NEEDED ORALLY EVERY 4 HRS NOT-TAKING SPIRIVA HANDIHALER 18 MCG CAPSULE 1 CAPSULE BY MOUTH INHALATION ONCE A DAY NOT-TAKING FLONASE SUSPENSION 1 SPRAY IN EACH NOSTRIL NASALLY BID MEDICATION LIST REVIEWED AND RECONCILED WITH THE PATIENT PAST MEDICAL HISTORY DEPRESSION COPD URINARY INCONTINENCE ALLERGIES IBUPROFEN: NAUSEA/VOMITING SOCIAL HISTORY GENERAL: TOBACCO USE ARE YOU A:CURRENT SMOKER HOW MANY CIGARETTES A DAY DO YOU SMOKE?11-20 HOW SOON AFTER YOU WAKE UP DO YOU SMOKE YOUR FIRST CIGARETTE?WITHIN 5 MIN HOW OFTEN DO YOU SMOKE CIGARETTES?EVERY DAY PATIENT COUNSELED ON THE DANGERS OF TOBACCO USE AND URGED TO QUIT:11/22/2016 ARE YOU INTERESTED IN QUITTING?NOT READY TO QUIT COUNSELED THE PATIENT ON SMOKING EFFECTS, EDUCATION [id number]/10/2017 PAIN CLINIC PFS, CLERGY, PUBLIC HEALTH REFERRALS PFS REFERRAL NEEDED? NO , CLERGY REFERRAL NEEDED? NO , PUBLIC HEALTH REFERRAL NEEDED? NO , WAS THE PROVIDER NOTIFIED OF ANY PERTINENT INFO? NO . PATIENT: ____. PT IS A CURRENT SMOKER LESS THAN 1 PPD. PT HAS NICOTINE GUM WHICH SHE HAS NOT STARTED YET. REVIEW OF SYSTEMS REVIEWED BY: PROVIDER: . CONSTITUTIONAL: ANY CHANGE IN YOUR MEDICAL CONDITION? NO . CHILLS NO . FEVER NO . INFECTION: DO YOU HAVE NEW INFECTIONS? NO . DO YOU HAVE HISTORY OF MRSA? NO . MUSCULOSKELETAL: ANY NEW PATTERNS OF PAIN OR NUMBNESS? NO . GASTROENTEROLOGY: ANY NEW CHANGE IN BOWEL CONTROL? NO . GENITOURINARY: ANY NEW CHANGE IN BLADDER CONTROL? NO . IS THERE A CHANCE YOU COULD BE ? NO . HEMATOLOGY/LYMPH: DO YOU TAKE ANY BLOOD THINNERS? (FOR EXAMPLE- COUMADIN, PLAVIX, AGGRENOX, PLATEL, PRADAXA, OR XARELTO) NO . WHEN WAS YOUR LAST DOSE? DATE: TIME: . NEUROLOGY: HAVE YOU FALLEN IN THE PAST 6 MONTHS? NO . ANY NEW EXTREMITY NUMBNESS OR WEAKNESS? NO . CARDIOLOGY: DO YOU HAVE A PACEMAKER OR DEFIBRILLATOR? NO . RESPIRATORY: HAVE YOU BEEN SICK IN THE PAST WEEK? NO . FEVER NO . FLU LIKE SYMPTOMS? NO . COUGH NO . INTEGUMENTARY: DO YOU HAVE ANY RASHES OR OPEN SORES? NO . ALLERGIC/IMMUNO: ARE YOU ALLERGIC TO SHELLFISH OR IV DYE? NO . ANY NEW ALLERGIES? NO . PSYCHIATRIC: DO YOU HAVE THOUGHTS OF HURTING YOURSELF OR SOMEONE ELSE? NO . ARE YOU ABUSED, NEGLECTED, OR IN AN UNSAFE ENVIRONMENT? NO . ENDOCRINOLOGY: ARE YOU DIABETIC? NO . OTHER: DO YOU NEED ANY PRESCRIPTIONS? NO . IF YES, PLEASE LIST: ____ . ANY NEW PROBLEMS WITH YOUR MEDICATIONS? NO . WHEN DID YOU LAST EAT? 11/21/16 1700 . WHEN DID YOU LAST DRINK? 11/22/16 0500 . WHAT DID YOU LAST DRINK? WATER . NAME OF PERSON DRIVING YOU HOME? BOYFRIEND OR SON . DO YOU HAVE ANY OTHER QUESTIONS OR CONCERNS NO . VITAL SIGNS WT 183 LBS, HT 60 IN, BMI 35.74 INDEX, BP 138/74 MM HG, HR 75 /MIN, RR 16 /MIN, TEMP 98.8 F, OXYGEN SAT % 94, NA INITIALS SC 0843, REVIEWED BY: JAY. ASSESSMENTS MYALGIA - M79.1 (PRIMARY) PROCEDURES PN TRIGGER POINT INJECTION WITH STEROIDS PRE PROCEDURE DIAGNOSIS 1. MYALGIA 2. PAIN AT RIGHT LOWER BACK AREA POST PROCEDURE DIAGNOSIS 1. MYALGIA 2. PAIN AT RIGHT LOWER BACK AREA PROCEDURE TRIGGER POINT INJECTION AT RIGHT LOWER BACK AREA SURGEON DR. AARON SHRESTHA MANAGEMENT SPECIALIST NONE ANESTHESIA LOCAL PRE PROCEDURE NOTE THE PATIENT HAS A HISTORY OF CHRONIC PAIN AT THE RIGHT LOWER BACK AREA. I EVALUATE THE PATIENT AND REVIEWED THE CHART. THERE IS EVIDENCE OF BANDS OF TISSUE WITH RESTRICTION OF MOVEMENT AND PRESENCE OF TRIGGER POINT AT THE AFFECTED AREA. I WENT OVER THE RISKS, ALTERNATIVES, AND BENEFITS ASSOCIATED WITH THIS PROCEDURE. THE PATIENT WOULD LIKE TO PROCEED AND GIVE CONSENT TO PERFORMED THE PROCEDURE. THE PATIENT DENIES UNEXPLAINABLE WEIGHT LOSS, FEVER, CHILLS, OR NEW CHANGES IN URINARY OR BOWEL CONTROL DESCRIPTION OF PROCEDURE THE PATIENT WAS BROUGHT TO THE PROCEDURE ROOM AND PLACED IN THE SITTING POSITION. THE AREA WAS CLEANED WITH ALCOHOL. THE PROCEDURE WAS DONE USING ASEPTIC STERILE TECHNIQUE. I CHECKED LATERALITY AND THE LEVEL WHERE THE PROCEDURE WAS GOING TO BE PERFORMED WITH THE PATIENT AND THE SUPPORTING STAFF AT THE MOMENT OF THE TIME OUT IN THE PROCEDURE ROOM. USING A 25-GAUGE NEEDLE, TRIGGER POINTS WERE INJECTED AT THE RIGHT LOWER BACK AREA WITH A TOTAL OF 40 ML OF BUPIVACAINE 0.25% AND KENALOG 40 MG. THERE WAS NO EVIDENCE OF BLOOD, PARESTHESIA OR CEREBROSPINAL FLUID DURING THE PROCEDURE. THE PATIENT WAS SENT TO THE RECOVERY ROOM. THE PATIENT WAS MOVING THE EXTREMITIES AND DOING WELL. THERE WAS NO COMPLICATION DURING THE PROCEDURE POST PROCEDURE NOTE THE PATIENT WILL BE SEEN IN A FOLLOW UP IN THE NEXT FEW WEEKS. INSTRUCTIONS WERE GIVEN, QUESTIONS WERE ANSWERED, AND THE PATIENT EXPRESSED UNDERSTANDING AND AGREES WITH THE PLAN. I, JESUS SCHULER, DOCUMENTED THE ABOVE INFORMATION ACTING A SCRIBE FOR DR. SHRESTHA. I HAVE REVIEWED THE ABOVE DOCUMENT, WRITTEN BY JESUS PARSONS AND I VERIFY THAT IT IS ACCURATE PROCEDURE CODES 51054 INJ TRIGGER POINT 05/17 [facility] [place] DISPOSITION & COMMUNICATION FOLLOW UP 3 WEEKS ELECTRONICALLY SIGNED BY AARON SHRESTHA MD ON 11/28/2016 AT 09:53 PM EDT DISCLAIMER : THIS IS A VISIT SUMMARY EXTRACTED FROM THE [employer] CHART. IT IS NOT A COPY OF THE [employer] PROGRESS NOTE. SHON
== END ==
LOC: M PAIN 08:30
PROVIDERS: ATTEND Anesthesiology
DX: M79.1 Myalgia (principal); G89.29 Other chronic pain; M54.5 Low back pain; Z79.891 Long term (current) use of opiate analgesic; Z79.899 Other long term (current) drug therapy; Z88.6 Allergy status to analgesic agent; F17.210 Nicotine dependence, cigarettes, uncomplicated

== ENCOUNTER → 2016-11-24 | Outpatient (CLI) | payer OTHER ==
[~2016-11-24] MED LIST changes: -BUPIVACAINE HCL 0.25% 10 ML VIAL As Ordered ONE; -BUPIVACAINE HCL 0.25% 30 ML VIAL As Ordered ONE; -TRIAMCINOLONE ACETONIDE SUSP 40 MG/ML VIAL (J3301) As Ordered ONE; -diazePAM 5 MG TAB As Ordered ONE; -oxyCODONE 5MG TAB As Ordered ONE
--- NOTE | 2016-12-18 01:27 | ECWPNPC ---
PATIENT NAME: JR CAZARES : 1960 GENDER: FEMALE VISIT DATE: 11/24/2016 DISCHARGE DATE: 11/24/16 1029 VISIT LOCKED DATE TIME: PHYSICIAN: ALDO ANDRE RESOURCE: ALDO ANDRE REASON FOR APPOINTMENT 1. POST PROCEDURE HISTORY OF PRESENT ILLNESS HISTORY OF PRESENT ILLNESS: PAIN THE PATIENT DESCRIBES THE PAIN... FALL RISK SCREENING: SCREENING :NO FALLS IN THE PAST YEAR TODAY'S VISIT: NOTES: S/P TPI TO RIGHT LOW BACK ON11/22/16 . STILL HAS OPSITE IN PLACE. IS NOTING PAIN IN RIGHT BUTTUCK AND UPPER THIGH. RATES PAIN TODAY 5/10. DOES FEEL THAT TRIGGER POINTS WERE HELPFUL IN DECREASING SPASM IN THIS AREA, BUT NOTES MANY OTHER AREAS WHICH ARE PAINFUL. DESCRIBES PAIN CONSTANT, ACHING, BURNING, SHARP, STABBING AND SHOOTING. CURRENT MEDICATIONS TAKING LIDOCAINE 5 % PATCH 1 PATCH TO INTACT SKIN REMOVE AFTER 12 HOURS EXTERNALLY ONCE A DAY, NOTES: 11/20/16 TAKING VITAMIN D 43683 U TABLET ORALLY ONCE A WEEK, NOTES: 11/19/16 TAKING DEPAKOTE ER 750 1 TAB ORALLY BID, NOTES: 11/22/16499 TAKING ZONISAMIDE 100 MG CAPSULE 3 CAPSULE ORALLY AT BEDTIME, NOTES: 11/21/162199 TAKING ATORVASTATIN CALCIUM 40 MG TABLET 1 TABLET ORALLY ONCE A DAY, NOTES: 11/22/16499 TAKING OMEPRAZOLE 20 MG CAPSULE DELAYED RELEASE 1 CAP ORALLY ONCE A DAY, NOTES: 11/22/16499 TAKING LISINOPRIL 20 MG TABLET 1 TABLET ORALLY ONCE A DAY, NOTES: 11/22/16499 TAKING BUSPIRONE HCL 30 MG TABLET 1 TABLET ORALLY BID, NOTES: 11/22/16499 TAKING MAGNESIUM 400 MG CAPSULE 1 TABLET WITH A MEAL ORALLY ONCE A DAY, NOTES: 11/22/16499 TAKING ANORO ELLIPTA 62.5-25 MCG/INH AEROSOL POWDER BREATH ACTIVATED 1 PUFF INHALATION ONCE A DAY, NOTES: 11/22/16499 TAKING SUMATRIPTAN SUCCINATE 25 MG TABLET 1 TABLET NEEDED ORALLY TWICE A DAY, NOTES: 11/21/162199 TAKING TRAMADOL HCL 50 MG TABLET 1 ORALLY EVERY 6 HRS PRN FOR PAINMDD 2, NOTES: 11/21/162199 TAKING TIZANIDINE HCL 2 MG TABLET 1 TABLET NEEDED ORALLY BEFORE BEDTIME FOR SPASMS AND PAIN, NOTES: 11/21/162199 TAKING GABAPENTIN 300 MG CAPSULE 1 CAPSULE ORALLY THREE TIMES A DAY FOR PAIN, NOTES: 11/22/16 0500 TAKING TRAZODONE HCL 150 MG TABLET 1 TAB ORALLY ONCE A DAY, NOTES: 11/21/162199 TAKING SERTRALINE HCL 100 MG TABLET 1 1/2 TABLET ORALLY BEFORE BEDTIME, NOTES: NOT-TAKING TRAZODONE HCL ER 200 MG 1 TAB ORALLY AT BEDTIME DAILY NOT-TAKING NICOTINE MINI 4 MG LOZENGE 1 LOZENGE NEEDED MOUTH/THROAT TWICE A DAY, NOTES: NOT STARTED YET NOT-TAKING VENTOLIN HFA 108 (90 BASE) MCG/ACT AEROSOL SOLUTION 2 PUFFS INHALATION EVERY 4-6 HOURS NEEDED, NOTES: 64419@1600 NOT-TAKING METHOCARBAMOL 500 MG TABLET 2 TABLETS ORALLY EVERY 6 HRS NEEDED, NOTES: 5- NOT-TAKING HYDROCODONE-ACETAMINOPHEN 5-325 MG TABLET 1 TABLET NEEDED ORALLY EVERY 4 HRS NOT-TAKING SPIRIVA HANDIHALER 18 MCG CAPSULE 1 CAPSULE BY MOUTH INHALATION ONCE A DAY NOT-TAKING FLONASE SUSPENSION 1 SPRAY IN EACH NOSTRIL NASALLY BID MEDICATION LIST REVIEWED AND RECONCILED WITH THE PATIENT PAST MEDICAL HISTORY DEPRESSION COPD URINARY INCONTINENCE ALLERGIES IBUPROFEN: NAUSEA/VOMITING REVIEW OF SYSTEMS REVIEWED BY: PROVIDER: ALDO BRYANT . CONSTITUTIONAL: ANY CHANGE IN YOUR MEDICAL CONDITION? NO . CHILLS NO . FEVER NO . INFECTION: DO YOU HAVE NEW INFECTIONS? NO . DO YOU HAVE HISTORY OF MRSA? NO . MUSCULOSKELETAL: ANY NEW PATTERNS OF PAIN OR NUMBNESS? NO . GASTROENTEROLOGY: ANY NEW CHANGE IN BOWEL CONTROL? NO . GENITOURINARY: ANY NEW CHANGE IN BLADDER CONTROL? NO . IS THERE A CHANCE YOU COULD BE ? NO . HEMATOLOGY/LYMPH: DO YOU TAKE ANY BLOOD THINNERS? (FOR EXAMPLE- COUMADIN, PLAVIX, AGGRENOX, PLATEL, PRADAXA, OR XARELTO) NO . WHEN WAS YOUR LAST DOSE? DATE: TIME: . NEUROLOGY: HAVE YOU FALLEN IN THE PAST 6 MONTHS? NO . ANY NEW EXTREMITY NUMBNESS OR WEAKNESS? NO . CARDIOLOGY: DO YOU HAVE A PACEMAKER OR DEFIBRILLATOR? NO . RESPIRATORY: HAVE YOU BEEN SICK IN THE PAST WEEK? NO . FEVER NO . FLU LIKE SYMPTOMS? NO . COUGH NO . INTEGUMENTARY: DO YOU HAVE ANY RASHES OR OPEN SORES? NO . ALLERGIC/IMMUNO: ARE YOU ALLERGIC TO SHELLFISH OR IV DYE? NO . ANY NEW ALLERGIES? NO . PSYCHIATRIC: DO YOU HAVE THOUGHTS OF HURTING YOURSELF OR SOMEONE ELSE? NO . ARE YOU ABUSED, NEGLECTED, OR IN AN UNSAFE ENVIRONMENT? NO . ENDOCRINOLOGY: ARE YOU DIABETIC? NO . OTHER: DO YOU NEED ANY PRESCRIPTIONS? NO . IF YES, PLEASE LIST: ____ . ANY NEW PROBLEMS WITH YOUR MEDICATIONS? NO . WHEN DID YOU LAST EAT? ____ . WHEN DID YOU LAST DRINK? ____ . WHAT DID YOU LAST DRINK? ____ . NAME OF PERSON DRIVING YOU HOME? ____ . DO YOU HAVE ANY OTHER QUESTIONS OR CONCERNS NO . VITAL SIGNS WT 183.0 LBS, HT 60 IN, BMI 35.74 INDEX, BP 145/72 MM HG, HR 70 /MIN, RR 18 /MIN, TEMP 98.1 F, OXYGEN SAT % 94%, NA INITIALS TL 1001. EXAMINATION GENERAL EXAMINATION: LUNGS:BILATERAL WHEEZES, INTERMITTANT COUGH, , DECREASED AIR ENTRY AT BASES. HEART:HEART RATE REGULAR. MUSCULOSKELETAL:TENDER TO PALPATION OVER RIGHT LUMBOSACRAL AXIS. TRIGGER POINTS AND TIGHT FIBROUS BANDS IDENTIFIED OVER C7 PROMINENCE, LEFT SCAPULA/TRAPEZIUS REGION. TENDER WITH PALPATION OVER LEFT TROCANTER AND LEFT KNEE. SLOW TO RISE TO STANDING POSITION. POSTURE UPRIGHT, GAIT SLOW.. ASSESSMENTS CERVICAL RADICULOPATHY AT C5 - M54.12 (PRIMARY) MYALGIA - M79.1 CERVICALGIA - M54.2 TREATMENT CERVICAL RADICULOPATHY AT C5 REFILL TIZANIDINE HCL TABLET, 4 MG, 1 TABLET NEEDED, ORALLY, BEFORE BEDTIME FOR SPASMS AND PAIN, 30 DAY(S), 30, REFILLS 2 NOTES: CONTINUE EXERCISES AND STRETCHES. CNTINUE CURRENT MEDS. PROCEDURE CODES FA211 ESTABILISHED PATIENT [facility] CHARGE DISPOSITION & COMMUNICATION FOLLOW UP 1 MONTH (REASON: BACK PAIN) ELECTRONICALLY SIGNED BY ARMANDO WALLACE ON 12/17/2016 AT 04:57 PM EDT DISCLAIMER : THIS IS A VISIT SUMMARY EXTRACTED FROM THE [employer] CHART. IT IS NOT A COPY OF THE [employer] PROGRESS NOTE. SHON
== END | disposition home or self-care (01) ==
LOC: M PAIN 09:20
PROVIDERS: ATTEND Nurse Practitioner Family
DX: G89.29 Other chronic pain (principal); M54.12 Radiculopathy, cervical region; M79.1 Myalgia; F33.9 Major depressive disorder, recurrent, unspecified; J44.9 Chronic obstructive pulmonary disease, unspecified; R32 Unspecified urinary incontinence; Z79.899 Other long term (current) drug therapy; Z79.51 Long term (current) use of inhaled steroids

== ENCOUNTER → 2017-01-06 | Outpatient (CLI) | payer OTHER ==
--- NOTE | 2017-01-16 23:19 | ECWPNPC ---
PATIENT NAME: JR CAZARES : 1960 GENDER: FEMALE VISIT DATE: 01/06/2017 DISCHARGE DATE: 01/06/17 1217 VISIT LOCKED DATE TIME: PHYSICIAN: ALDO ANDRE RESOURCE: ALDO ANDRE REASON FOR APPOINTMENT 1. MEDS HISTORY OF PRESENT ILLNESS HISTORY OF PRESENT ILLNESS: PAIN THE PATIENT DESCRIBES THE PAIN... FALL RISK SCREENING: SCREENING :NO FALLS IN THE PAST YEAR TODAY'S VISIT: NOTES: RATES PAIN TODAY 8/10. DESCRIBES PAIN CONSTANT, ACHING, BURNING, SHARP AND STABBING SHOOTING.REPORTS PAIN IN LOW BACK AND RIGHT BUTTUCK, LEFT SHOULDER, MIGRAINE HEADACHE AND WEAKNESS IN LEFT LEG.REPORTS INCREASING WEAKNESS IN HANDS AND ARMS. . CURRENT MEDICATIONS TAKING LIDOCAINE 5 % PATCH 1 PATCH TO INTACT SKIN REMOVE AFTER 12 HOURS EXTERNALLY ONCE A DAY TAKING VITAMIN D 00708 U TABLET ORALLY ONCE A WEEK TAKING DEPAKOTE ER 750 1 TAB ORALLY BID TAKING ZONISAMIDE 100 MG CAPSULE 3 CAPSULE ORALLY AT BEDTIME TAKING ATORVASTATIN CALCIUM 40 MG TABLET 1 TABLET ORALLY ONCE A DAY TAKING OMEPRAZOLE 20 MG CAPSULE DELAYED RELEASE 1 CAP ORALLY ONCE A DAY TAKING LISINOPRIL 20 MG TABLET 1 TABLET ORALLY ONCE A DAY TAKING BUSPIRONE HCL 30 MG TABLET 1 TABLET ORALLY BID TAKING MAGNESIUM 400 MG CAPSULE 1 TABLET WITH A MEAL ORALLY ONCE A DAY TAKING ANORO ELLIPTA 62.5-25 MCG/INH AEROSOL POWDER BREATH ACTIVATED 1 PUFF INHALATION ONCE A DAY TAKING SUMATRIPTAN SUCCINATE 25 MG TABLET 1 TABLET NEEDED ORALLY TWICE A DAY TAKING TRAMADOL HCL 50 MG TABLET 1 ORALLY EVERY 6 HRS PRN FOR PAINMDD 2 TAKING GABAPENTIN 300 MG CAPSULE 1 CAPSULE ORALLY THREE TIMES A DAY FOR PAIN TAKING TRAZODONE HCL 150 MG TABLET 1 TAB ORALLY ONCE A DAY TAKING SERTRALINE HCL 100 MG TABLET 1 1/2 TABLET ORALLY BEFORE BEDTIME TAKING TIZANIDINE HCL 4 MG TABLET 1 TABLET NEEDED ORALLY BEFORE BEDTIME FOR SPASMS AND PAIN NOT-TAKING TRAZODONE HCL ER 200 MG 1 TAB ORALLY AT BEDTIME DAILY NOT-TAKING NICOTINE MINI 4 MG LOZENGE 1 LOZENGE NEEDED MOUTH/THROAT TWICE A DAY, NOTES: NOT STARTED YET NOT-TAKING VENTOLIN HFA 108 (90 BASE) MCG/ACT AEROSOL SOLUTION 2 PUFFS INHALATION EVERY 4-6 HOURS NEEDED, NOTES: 36265@1600 NOT-TAKING METHOCARBAMOL 500 MG TABLET 2 TABLETS ORALLY EVERY 6 HRS NEEDED, NOTES: 5- NOT-TAKING HYDROCODONE-ACETAMINOPHEN 5-325 MG TABLET 1 TABLET NEEDED ORALLY EVERY 4 HRS NOT-TAKING SPIRIVA HANDIHALER 18 MCG CAPSULE 1 CAPSULE BY MOUTH INHALATION ONCE A DAY NOT-TAKING FLONASE SUSPENSION 1 SPRAY IN EACH NOSTRIL NASALLY BID MEDICATION LIST REVIEWED AND RECONCILED WITH THE PATIENT PAST MEDICAL HISTORY DEPRESSION COPD URINARY INCONTINENCE ALLERGIES IBUPROFEN: NAUSEA/VOMITING SURGICAL HISTORY TUBAL LIGATION 99 CHOLECYSTECTOMY 92 APPENDECTOMY 92 TONSILLECTOMY CHILDHOOD REVIEW OF SYSTEMS REVIEWED BY: PROVIDER: ALDO BRYANT . CONSTITUTIONAL: ANY CHANGE IN YOUR MEDICAL CONDITION? NO . CHILLS NO . FEVER NO . INFECTION: DO YOU HAVE NEW INFECTIONS? NO . DO YOU HAVE HISTORY OF MRSA? NO . MUSCULOSKELETAL: ANY NEW PATTERNS OF PAIN OR NUMBNESS? NO . GASTROENTEROLOGY: ANY NEW CHANGE IN BOWEL CONTROL? NO . GENITOURINARY: ANY NEW CHANGE IN BLADDER CONTROL? NO . IS THERE A CHANCE YOU COULD BE ? NO . HEMATOLOGY/LYMPH: DO YOU TAKE ANY BLOOD THINNERS? (FOR EXAMPLE- COUMADIN, PLAVIX, AGGRENOX, PLATEL, PRADAXA, OR XARELTO) NO . WHEN WAS YOUR LAST DOSE? DATE: TIME: . NEUROLOGY: HAVE YOU FALLEN IN THE PAST 6 MONTHS? NO . ANY NEW EXTREMITY NUMBNESS OR WEAKNESS? NO . CARDIOLOGY: DO YOU HAVE A PACEMAKER OR DEFIBRILLATOR? NO . RESPIRATORY: HAVE YOU BEEN SICK IN THE PAST WEEK? NO . FEVER NO . FLU LIKE SYMPTOMS? NO . COUGH NO . INTEGUMENTARY: DO YOU HAVE ANY RASHES OR OPEN SORES? NO . ALLERGIC/IMMUNO: ARE YOU ALLERGIC TO SHELLFISH OR IV DYE? NO . ANY NEW ALLERGIES? NO . PSYCHIATRIC: DO YOU HAVE THOUGHTS OF HURTING YOURSELF OR SOMEONE ELSE? NO . ARE YOU ABUSED, NEGLECTED, OR IN AN UNSAFE ENVIRONMENT? NO . ENDOCRINOLOGY: ARE YOU DIABETIC? NO . OTHER: DO YOU NEED ANY PRESCRIPTIONS? NO . IF YES, PLEASE LIST: ____ . ANY NEW PROBLEMS WITH YOUR MEDICATIONS? NO . WHEN DID YOU LAST EAT? ____ . WHEN DID YOU LAST DRINK? ____ . WHAT DID YOU LAST DRINK? ____ . NAME OF PERSON DRIVING YOU HOME? ____ . DO YOU HAVE ANY OTHER QUESTIONS OR CONCERNS NO . VITAL SIGNS WT 178.8 LBS, HT 60 IN, BMI 34.92 INDEX, BP 133/70 MM HG, HR 74 /MIN, RR 18 /MIN, TEMP 98.7 F, OXYGEN SAT % 94%, NA INITIALS CM 1100, REVIEWED BY: EM. EXAMINATION GENERAL EXAMINATION: LUNGS:BILATERAL WHEEZES, INTERMITTANT COUGH, , DECREASED AIR ENTRY AT BASES. HEART:HEART RATE REGULAR. MUSCULOSKELETAL: EXQUISITE TENDERNESSNESS OVER RIGHT SIJ AND LUMBOSACRAL AXIS. TRIGGER POINTS AND TIGHT FIBROUS BANDS IDENTIFIED OVER C7 PROMINENCE, LEFT SCAPULA/TRAPEZIUS REGION. TENDER WITH PALPATION OVER LEFT TROCANTER AND LEFT KNEE. SLOW TO RISE TO STANDING POSITION. POSTURE UPRIGHT, GAIT SLOW.. ASSESSMENTS CERVICAL RADICULOPATHY AT C5 - M54.12 (PRIMARY) MYALGIA - M79.1 CERVICALGIA - M54.2 SACROILIITIS, NOT ELSEWHERE CLASSIFIED - M46.1 TREATMENT CERVICAL RADICULOPATHY AT C5 REFILL TRAMADOL HCL TABLET, 50 MG, 1, ORALLY, EVERY 6 HRS PRN FOR PAINMDD 2, 30 DAY(S), 60, REFILLS 0 NOTES: COMPLETE NERVE BLOCK WITH NEUROLOGY FOR MIGRAINES,ANATOMY OF THE SACROILIAC JOINT MATERIAL WAS PRINTED, REVIEWED AND GIVEN TO PT. SACROILIITIS, NOT ELSEWHERE CLASSIFIED INJECTION ANESTHETIC SACROILIAC JOINTALDO ANDRE 01/06/2017 11:55:01 AM > RIGHT PROCEDURE CODES FA211 ESTABILISHED PATIENT [facility] FACILITY CHARGE DISPOSITION & COMMUNICATION FOLLOW UP AFTER INJECTION (REASON: CHECK AUTH FOR RIGHT SIJ/NEED EMG REPORT FROM Fidelia RODRIGUEZ) ELECTRONICALLY SIGNED BY ARMANDO WALLACE ON 01/16/2017 AT 04:09 PM EDT DISCLAIMER : THIS IS A VISIT SUMMARY EXTRACTED FROM THE [email or web address] CHART. IT IS NOT A COPY OF THE [email or web address] PROGRESS NOTE. MTDD
== END | disposition home or self-care (01) ==
LOC: M PAIN 10:45
PROVIDERS: ATTEND Nurse Practitioner Family
DX: G89.29 Other chronic pain (principal); M54.12 Radiculopathy, cervical region; M79.1 Myalgia; M46.1 Sacroiliitis, not elsewhere classified; F33.9 Major depressive disorder, recurrent, unspecified; J44.9 Chronic obstructive pulmonary disease, unspecified; R32 Unspecified urinary incontinence; Z79.899 Other long term (current) drug therapy; Z79.51 Long term (current) use of inhaled steroids; Z88.8 Allergy status to other drugs, medicaments and biological substances

== ENCOUNTER → 2017-01-25 | Outpatient (CLI) | payer OTHER ==
[~2017-01-25] MED LIST changes: +BUPIVACAINE HCL 0.25% 30 ML VIAL As Ordered ONE; +ISOVUE-M 300 61% 15ML VIAL (Q9967) As Ordered ONE; +LIDOCAINE 1% SDV INJ 30 ML VIAL As Ordered ONE; +TRIAMCINOLONE ACETONIDE SUSP 40 MG/ML VIAL (J3301) As Ordered ONE; +diazePAM 5 MG TAB As Ordered ONE; +oxyCODONE 5MG TAB As Ordered ONE
--- NOTE | 2017-01-25 11:54 | REP ---
Partial SI joint series: Five views. History: Injection procedure for pain. 15 seconds of fluoroscopy time is reported. Findings: A sequence of five last image hold fluoroscopic spot radiographs document various needle positions associated with injection procedure. Signed by Yunior Boyce MD 01/25/2017 02:15 P
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
== END | disposition home or self-care (01) ==
LOC: M PAIN 08:30
PROVIDERS: ATTEND Anesthesiology
DX: G89.29 Other chronic pain (principal); M46.1 Sacroiliitis, not elsewhere classified; J44.9 Chronic obstructive pulmonary disease, unspecified; R32 Unspecified urinary incontinence; Z79.899 Other long term (current) drug therapy; Z79.51 Long term (current) use of inhaled steroids; Z88.8 Allergy status to other drugs, medicaments and biological substances; F17.210 Nicotine dependence, cigarettes, uncomplicated
CPT/HCPCS: 27096; 76000; J3301; Q9967

== ENCOUNTER → 2017-02-03 | Outpatient (REF) | payer OTHER ==
[~2017-02-03] MED LIST changes: -BUPIVACAINE HCL 0.25% 30 ML VIAL As Ordered ONE; -ISOVUE-M 300 61% 15ML VIAL (Q9967) As Ordered ONE; -LIDOCAINE 1% SDV INJ 30 ML VIAL As Ordered ONE; -TRIAMCINOLONE ACETONIDE SUSP 40 MG/ML VIAL (J3301) As Ordered ONE; -diazePAM 5 MG TAB As Ordered ONE; -oxyCODONE 5MG TAB As Ordered ONE
[2017-02-03 10:39] LABS: BASO % 0.1 % (0.0-1.0); EOS # 0.1 K/mm3 (0.0-0.50); EOS % 0.9 % (0.0-3.0); LYMPH # 2.8 K/mm3 (1.5-4.5); LYMPH % 22.7 % (24.0-44.0); MEAN CORPUSCULAR HEMOGLOBIN 31.4 pg (27.0-33.0); MEAN CORPUSCULAR HGB CONC 35.2 g/dl (32.0-36.5); MONO # 0.6 K/mm3 (0.0-0.8); MONO % 4.5 % (0.0-5.0); NEUTROPHILS # 8.6 K/mm3 (1.8-7.7); NEUTROPHILS % 70.6 % (36.0-66.0); RED CELL DISTRIBUTION WIDTH 12.3 % (11.5-14.5); WHITE BLOOD COUNT 12.2 K/mm3 (4.0-10.0)
[2017-02-03 10:47] LABS: ALBUMIN 3.7 GM/DL (3.2-5.2); ALBUMIN/GLOBULIN RATIO 1.37 (1.00-1.93); BILIRUBIN,TOTAL 0.4 MG/DL (0.2-1.0); CALCIUM LEVEL 8.6 MG/DL (8.5-10.1); CREATININE FOR GFR 1.03 MG/DL (0.55-1.02); POTASSIUM SERUM 4.4 MEQ/L (3.5-5.1); TOTAL PROTEIN 6.4 GM/DL (6.4-8.2)
== END ==
LOC: M LABNEURO 08:59
PROVIDERS: ATTEND Physician Assistant Medical
DX: E78.2 Mixed hyperlipidemia (principal); E55.9 Vitamin D deficiency, unspecified

== ENCOUNTER → 2017-02-08 | Outpatient (CLI) | payer OTHER ==
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
== END ==
LOC: M PAIN 09:00
PROVIDERS: ATTEND Nurse Practitioner Family
DX: G89.29 Other chronic pain (principal); M54.12 Radiculopathy, cervical region; M46.1 Sacroiliitis, not elsewhere classified; M79.1 Myalgia; F32.9 Major depressive disorder, single episode, unspecified; J44.9 Chronic obstructive pulmonary disease, unspecified; E11.9 Type 2 diabetes mellitus without complications; F17.210 Nicotine dependence, cigarettes, uncomplicated; Z88.6 Allergy status to analgesic agent; Z79.891 Long term (current) use of opiate analgesic; Z79.899 Other long term (current) drug therapy

== ENCOUNTER → 2017-04-20 | Outpatient (CLI) | payer OTHER ==
[2017-04-20 11:39] LABS: BASO % 0.5 % (0.0-1.0); EOS # 0.1 10^3/uL (0.0-0.50); EOS % 1.2 % (0.0-3.0); IMMATURE GRANULOCYTE % 0.3 % (0-0); LYMPH # 3.2 10^3/uL (1.5-4.5); LYMPH % 41.6 % (24.0-44.0); MEAN CORPUSCULAR HEMOGLOBIN 29.9 pg (27.0-33.0); MEAN CORPUSCULAR HGB CONC 33.4 g/dl (32.0-36.5); MEAN CORPUSCULAR VOLUME 89.6 fl (80.0-96.0); MONO # 0.6 10^3/uL (0.0-0.8); MONO % 8.2 % (0.0-5.0); NEUTROPHILS # 3.7 10^3/uL (1.8-7.7); NEUTROPHILS % 48.2 % (36.0-66.0); PLATELET COUNT, AUTOMATED 276 10^3/uL (150-450); RED CELL DISTRIBUTION WIDTH 12.9 % (11.5-14.5); WHITE BLOOD COUNT 7.6 10^3/uL (4.0-10.0)
[2017-04-20 11:56] LABS: ANION GAP 6 MEQ/L (8-16); BLOOD UREA NITROGEN 11 MG/DL (7-18); CALCIUM LEVEL 9.1 MG/DL (8.5-10.1); CARBON DIOXIDE LEVEL 31 MEQ/L (21-32); CHLORIDE LEVEL 104 MEQ/L (98-107); CREATININE FOR GFR 0.86 MG/DL (0.55-1.02); GLOMERULAR FILTRATION RATE > 60.0 (>51); GLUCOSE, FASTING 97 MG/DL (70-105); POTASSIUM SERUM 4.8 MEQ/L (3.5-5.1); SODIUM LEVEL 141 MEQ/L (136-145)
== END ==
LOC: M LAB 10:37
PROVIDERS: ATTEND Physician Assistant Medical
DX: E78.2 Mixed hyperlipidemia (principal)

== ENCOUNTER → 2017-06-09 | Outpatient (CLI) | payer OTHER | LOC: M PAIN 10:30 | DX: M79.1 Myalgia (principal); M46.1 Sacroiliitis, not elsewhere classified; J44.9 Chronic obstructive pulmonary disease, unspecified; F32.9 Major depressive disorder, single episode, unspecified; F17.210 Nicotine dependence, cigarettes, uncomplicated; Z79.891 Long term (current) use of opiate analgesic; Z79.899 Other long term (current) drug therapy; Z88.8 Allergy status to other drugs, medicaments and biological substances | CPT/HCPCS: G0463 ==

== ENCOUNTER → 2017-08-30 | Outpatient (CLI) | payer OTHER ==
[~2017-08-30] MED LIST changes: -ADVAIR DISKUS; -ALBU83IN INH; -ATOR40TA75 PO; -BACT2OIN10 TOP; -BREO1INH INH; +BUPIVACAINE HCL 0.25% 30 ML VIAL As Ordered; -BUSP15TA47 PO; -DEPA1TAB3 PO; -FLON0.054; +ISOVUE-M 300 61% 15ML VIAL (Q9967) As Ordered; -LIDO1PAD EX; +LIDOCAINE 1% SDV INJ 30 ML VIAL As Ordered; -LISI-538 PO; -MAGN400C3 PO; -NEUR100C PO; -NORCOTAB PO; -OMEP20CA3 PO; -PRIL20CA9 PO; -ROBA500T PO; -ROBA750T4 PO; -TIZA2CAP3 PO; -TRAM50TA2 PO; +TRIAMCINOLONE ACETONIDE SUSP 40 MG/ML VIAL (J3301) As Ordered; -VITA1CAP40 PO; -VITA500019 PO; -ZONI25CA2 PO; +diazePAM 5 MG TAB As Ordered; +oxyCODONE 5MG TAB As Ordered; -trazadone
== END ==
LOC: M PAIN 11:30
DX: G89.29 Other chronic pain (principal); M46.1 Sacroiliitis, not elsewhere classified; M53.88 Other specified dorsopathies, sacral and sacrococcygeal region; F32.9 Major depressive disorder, single episode, unspecified; J44.9 Chronic obstructive pulmonary disease, unspecified; E78.5 Hyperlipidemia, unspecified; I10 Essential (primary) hypertension; G43.909 Migraine, unspecified, not intractable, without status migrainosus; G47.33 Obstructive sleep apnea (adult) (pediatric); F41.9 Anxiety disorder, unspecified; E55.9 Vitamin D deficiency, unspecified; G56.03 Carpal tunnel syndrome, bilateral upper limbs; Z79.51 Long term (current) use of inhaled steroids; Z79.899 Other long term (current) drug therapy; Z88.6 Allergy status to analgesic agent
CPT/HCPCS: J3301

== ENCOUNTER → 2017-09-07 | Outpatient (CLI) | payer OTHER | LOC: M PAIN 09:15 | DX: G89.29 Other chronic pain (principal); M46.1 Sacroiliitis, not elsewhere classified; M79.1 Myalgia; F32.9 Major depressive disorder, single episode, unspecified; J44.9 Chronic obstructive pulmonary disease, unspecified; E78.5 Hyperlipidemia, unspecified; I10 Essential (primary) hypertension; G43.909 Migraine, unspecified, not intractable, without status migrainosus; G47.33 Obstructive sleep apnea (adult) (pediatric); M54.9 Dorsalgia, unspecified; M25.512 Pain in left shoulder; F41.9 Anxiety disorder, unspecified; R32 Unspecified urinary incontinence; E55.9 Vitamin D deficiency, unspecified; F17.210 Nicotine dependence, cigarettes, uncomplicated; Z79.891 Long term (current) use of opiate analgesic; Z79.899 Other long term (current) drug therapy; Z88.6 Allergy status to analgesic agent | CPT/HCPCS: G0463 ==

== ENCOUNTER → 2017-09-19 | Outpatient (CLI) | payer OTHER | LOC: M RAD 11:10 | DX: Z12.2 Encounter for screening for malignant neoplasm of respiratory organs (principal); Z87.891 Personal history of nicotine dependence | CPT/HCPCS: G0297 ==

== ENCOUNTER → 2017-09-20 | Outpatient (CLI) | payer OTHER | LOC: M RAD 12:37 | DX: Z12.31 Encounter for screening mammogram for malignant neoplasm of breast (principal) | CPT/HCPCS: 77067 ==

== ENCOUNTER → 2017-12-07 | Outpatient (CLI) | payer OTHER | LOC: M PAIN 09:00 | DX: M79.1 Myalgia (principal); M46.1 Sacroiliitis, not elsewhere classified; F32.9 Major depressive disorder, single episode, unspecified; J44.9 Chronic obstructive pulmonary disease, unspecified; E78.5 Hyperlipidemia, unspecified; I10 Essential (primary) hypertension; G43.909 Migraine, unspecified, not intractable, without status migrainosus; G47.33 Obstructive sleep apnea (adult) (pediatric); F41.9 Anxiety disorder, unspecified; F17.210 Nicotine dependence, cigarettes, uncomplicated; Z79.51 Long term (current) use of inhaled steroids; Z79.891 Long term (current) use of opiate analgesic; Z79.899 Other long term (current) drug therapy; Z88.6 Allergy status to analgesic agent | CPT/HCPCS: G0463 ==

== ENCOUNTER → 2018-03-10 | Outpatient (CLI) | payer OTHER | LOC: M PAIN 08:45 | DX: M25.512 Pain in left shoulder (principal); M79.18 Myalgia, other site; M54.12 Radiculopathy, cervical region; J44.9 Chronic obstructive pulmonary disease, unspecified; F32.9 Major depressive disorder, single episode, unspecified; E78.5 Hyperlipidemia, unspecified; I10 Essential (primary) hypertension; G43.909 Migraine, unspecified, not intractable, without status migrainosus; G47.33 Obstructive sleep apnea (adult) (pediatric); F41.9 Anxiety disorder, unspecified; F17.210 Nicotine dependence, cigarettes, uncomplicated; Z79.51 Long term (current) use of inhaled steroids; Z79.899 Other long term (current) drug therapy; Z88.6 Allergy status to analgesic agent | CPT/HCPCS: G0463 ==

== ENCOUNTER → 2018-05-01 | Outpatient (CLI) | payer MEDICARE, MEDICAID ==
[~2018-05-01] MED LIST changes: +ADVAIR DISKUS; +ALBU83IN INH; +ATOR40TA75 PO; +BACT2OIN10 TOP; +BREO1INH INH; -BUPIVACAINE HCL 0.25% 30 ML VIAL As Ordered; +BUSP15TA47 PO; +DEPA1TAB3 PO; +FLON0.054; -ISOVUE-M 300 61% 15ML VIAL (Q9967) As Ordered; +LIDO1PAD EX; -LIDOCAINE 1% SDV INJ 30 ML VIAL As Ordered; +LISI-538 PO; +MAGN400C3 PO; +NEUR100C PO; +NORCOTAB PO; +OMEP20CA3 PO; +PRIL20CA9 PO; +ROBA500T PO; +ROBA750T4 PO; +TIZA2CAP PO; +TRAM50TA2 PO; -TRIAMCINOLONE ACETONIDE SUSP 40 MG/ML VIAL (J3301) As Ordered; +VITA500019 PO; +VITA50005 PO; +ZONI25CA2 PO; -diazePAM 5 MG TAB As Ordered; -oxyCODONE 5MG TAB As Ordered; +trazadone
--- NOTE | 2018-05-01 16:35 | REP ---
MRA BRAIN WITHOUT CONTRAST: HISTORY: Migraine. 3D [id number] MR angiography was performed at the level of the [place]. There is no aneurysm, arteriovenous malformation or atherosclerotic lesion. The A1 segment of the left anterior cerebral artery is hypoplastic. There is origin of the left posterior cerebral artery. Major intracranial vessels are patent. The left vertebral artery is dominant. IMPRESSION:Normal MRA brain. Electronically Signed by Davis Goel MD 05/01/2018 04:41 P
--- NOTE | 2018-05-01 16:40 | REP ---
MRA CAROTIDS WITHOUT CONTRAST: HISTORY: Migraine. Unenhanced 2D and 3D [id number] MR angiography was performed at the level of the carotid bifurcations. The distal common carotid arteries and origins of the external and internal carotid arteries are normal. The vertebral arteries are patent. The left vertebral artery is dominant. IMPRESSION: Normal MRA carotids. Electronically Signed by Davis Goel MD 05/01/2018 04:42 P
== END ==
LOC: M RAD 14:53
PROVIDERS: ATTEND Nurse Practitioner Adult Health
DX: G43.909 Migraine, unspecified, not intractable, without status migrainosus (principal); I67.1 Cerebral aneurysm, nonruptured

== ENCOUNTER → 2018-06-20 | Outpatient (REF) | payer MEDICARE, MEDICAID ==
[2018-06-20 11:15] LABS: ALBUMIN 4.1 GM/DL (3.2-5.2); ALT/SGPT 22 U/L (12-78); BILIRUBIN,TOTAL 0.4 MG/DL (0.2-1.0); BLOOD UREA NITROGEN 12 MG/DL (7-18); CALCIUM LEVEL 9.2 MG/DL (8.5-10.1); CARBON DIOXIDE LEVEL 25 MEQ/L (21-32); CHLORIDE LEVEL 103 MEQ/L (98-107); CHOLESTEROL LEVEL 243 MG/DL (<200); CHOLESTEROL RISK RATIO 3.983 (<5); CREATININE FOR GFR 0.83 MG/DL (0.55-1.30); GLOMERULAR FILTRATION RATE > 60.0 (>51); GLUCOSE, FASTING 98 MG/DL (70-100); HDL CHOLESTEROL 61 MG/DL (>40); LDL CHOLESTEROL 153 MG/DL (<100); NON-HDL-C 182 MG/DL; POTASSIUM SERUM 4.3 MEQ/L (3.5-5.1); SODIUM LEVEL 137 MEQ/L (136-145); TOTAL PROTEIN 6.8 GM/DL (6.4-8.2); TRIGLYCERIDES LEVEL 146 MG/DL (<150)
[2018-06-20 11:57] LABS: TOTAL 25(OH) VITAMIN D 20.2 NG/ML (30.0-100.0)
== END ==
LOC: M SFHCPLAZ 09:18
PROVIDERS: ATTEND Physician Assistant
DX: E78.5 Hyperlipidemia, unspecified (principal); E55.9 Vitamin D deficiency, unspecified

== ENCOUNTER → 2018-12-21 | Outpatient (CLI) | payer MEDICARE, MEDICAID ==
[~2018-12-21] MED LIST changes: +HYDR-3715 PO; -NORCOTAB PO; +OMEP1CAP73 PO; -OMEP20CA3 PO; +ZONI25CA13 PO; -ZONI25CA2 PO
--- NOTE | 2018-12-21 21:01 | REP ---
MRI LEFT ELBOW: TECHNIQUE: Multiple sequences in the axial, coronal and sagittal planes. There is increased signal in the distal biceps tendon with surrounding fluid. The findings suggest a partial tear of the distal biceps tendon. Adjacent brachialis and brachial radialis are unremarkable. Triceps tendon is intact. Common flexor and extensor tendons demonstrate no abnormal signal. The medial and lateral collateral ligaments are intact. There is no bone marrow edema or occult fracture. There is a normal amount of joint fluid. Above the level of the elbow, the ulnar nerve demonstrates hyperintense signal on T2-weighted images. This is not specific, but could indicate some degree of ulnar neuritis. No significant abnormality is identified in the region of the cubital tunnel. No other abnormalities are seen. IMPRESSION: There appears to be a partial tear of the distal end of the biceps tendon. No other evidence of tendon or ligament tear. Increased signal of the ulnar nerve above the level of the elbow is nonspecific. This could indicate ulnar neuritis. Electronically Signed by Rahul Monroe MD 12/22/2018 10:04 A
== END ==
LOC: M RAD 17:35
PROVIDERS: ATTEND Orthopaedic Surgery Sports Medicine
DX: M25.522 Pain in left elbow (principal)

== ENCOUNTER → 2019-01-29 | Outpatient (CLI) | payer MEDICARE, MEDICAID ==
[~2019-01-29] MED LIST changes: -OMEP1CAP73 PO; +OMEP20CA4 PO; -ZONI25CA13 PO; +ZONI25CA2 PO
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
== END ==
LOC: M PAIN 11:00
PROVIDERS: ATTEND Nurse Practitioner Family
DX: M51.17 Intervertebral disc disorders with radiculopathy, lumbosacral region (principal); M25.512 Pain in left shoulder; G89.29 Other chronic pain; Z86.59 Personal history of other mental and behavioral disorders; J44.9 Chronic obstructive pulmonary disease, unspecified; E78.5 Hyperlipidemia, unspecified; I10 Essential (primary) hypertension; G43.909 Migraine, unspecified, not intractable, without status migrainosus; G47.33 Obstructive sleep apnea (adult) (pediatric); F17.210 Nicotine dependence, cigarettes, uncomplicated; Z88.6 Allergy status to analgesic agent; Z79.51 Long term (current) use of inhaled steroids; Z79.891 Long term (current) use of opiate analgesic; Z79.899 Other long term (current) drug therapy

== ENCOUNTER → 2019-02-20 | Outpatient (REF) | payer MEDICARE, MEDICAID ==
[2019-02-20 14:37] LABS: BASO # 0.1 10^3/uL (0.0-0.2); BASO % 0.7 % (0.0-1.0); EOS # 0.1 10^3/uL (0.0-0.5); HEMATOCRIT 46.9 % (36.0-47.0); HEMOGLOBIN 15.4 g/dl (12.0-15.5); LYMPH # 3.5 10^3/uL (1.5-5.0); LYMPH % 45.2 % (24.0-44.0); MEAN CORPUSCULAR HEMOGLOBIN 30.1 pg (27.0-33.0); MEAN CORPUSCULAR HGB CONC 32.8 g/dl (32.0-36.5); MEAN CORPUSCULAR VOLUME 91.6 fl (80.0-96.0); MONO # 0.3 10^3/uL (0.0-0.8); MONO % 3.7 % (0.0-5.0); NEUTROPHILS # 3.8 10^3/uL (1.5-8.5); NEUTROPHILS % 49.3 % (36.0-66.0); PLATELET COUNT, AUTOMATED 285 10^3/uL (150-450); RED BLOOD COUNT 5.12 10^6/uL (4.00-5.40); WHITE BLOOD COUNT 7.7 10^3/uL (4.0-10.0)
[2019-02-20 14:59] LABS: ALBUMIN 3.8 GM/DL (3.2-5.2); ALT/SGPT 18 U/L (12-78); BILIRUBIN,TOTAL 0.4 MG/DL (0.2-1.0); BLOOD UREA NITROGEN 16 MG/DL (7-18); CALCIUM LEVEL 8.8 MG/DL (8.5-10.1); CARBON DIOXIDE LEVEL 31 MEQ/L (21-32); CHLORIDE LEVEL 103 MEQ/L (98-107); CHOLESTEROL LEVEL 214 MG/DL (<200); CHOLESTEROL RISK RATIO 3.627 (<5); CPK CREATINE PHOSPHOKINASE 123 U/L (26-192); CREATININE FOR GFR 0.85 MG/DL (0.55-1.30); GLOMERULAR FILTRATION RATE > 60.0 (>51); GLUCOSE, FASTING 120 MG/DL (70-100); HDL CHOLESTEROL 59 MG/DL (>40); LDL CHOLESTEROL 131 MG/DL (<100); NON-HDL-C 155 MG/DL; POTASSIUM SERUM 4.2 MEQ/L (3.5-5.1); SODIUM LEVEL 141 MEQ/L (136-145); TOTAL PROTEIN 6.6 GM/DL (6.4-8.2); TRIGLYCERIDES LEVEL 122 MG/DL (<150)
[2019-02-20 15:05] LABS: PTH INTACT 29.8 PG/ML (18.5-88.0); TOTAL 25(OH) VITAMIN D 23.8 NG/ML (30.0-100.0)
== END ==
LOC: M SFHCPLAZ 11:45
PROVIDERS: ATTEND Physician Assistant Medical
DX: E78.5 Hyperlipidemia, unspecified (principal); I10 Essential (primary) hypertension; E55.9 Vitamin D deficiency, unspecified; Z23 Encounter for immunization
CPT/HCPCS: 36415; 80053; 80061; 82306; 82550; 83970; 85025; 90471; 90682; G0463

== ENCOUNTER → 2019-03-06 | Outpatient (REF) | payer MEDICARE, MEDICAID | LOC: M LAB REF 18:00 | PROVIDERS: ATTEND Orthopaedic Surgery Sports Medicine | DX: M67.40 Ganglion, unspecified site (principal) ==

== ENCOUNTER → 2020-07-15 | Outpatient (REF) | payer MEDICARE, MEDICAID ==
[~2020-07-15] MED LIST changes: -LISI-538 PO; +LISI20TA33 PO; +OMEP1CAP73 PO; -OMEP20CA4 PO; +ZONI25CA13 PO; -ZONI25CA2 PO
[2020-07-15 10:34] LABS: BASO # 0.1 10^3/uL (0.0-0.2); BASO % 0.7 % (0.0-1.0); EOS # 0.1 10^3/uL (0.0-0.5); EOS % 1.6 % (0.0-3.0); HEMOGLOBIN 15.1 g/dl (12.0-15.5); LYMPH # 2.4 10^3/uL (1.5-5.0); LYMPH % 35.8 % (24.0-44.0); MEAN CORPUSCULAR HEMOGLOBIN 28.7 pg (27.0-33.0); MEAN CORPUSCULAR HGB CONC 32.1 g/dl (32.0-36.5); MEAN CORPUSCULAR VOLUME 89.2 fl (80.0-96.0); MONO # 0.6 10^3/uL (0.0-0.8); MONO % 8.3 % (2.0-8.0); NEUTROPHILS # 3.6 10^3/uL (1.5-8.5); NEUTROPHILS % 52.9 % (36.0-66.0); PLATELET COUNT, AUTOMATED 247 10^3/uL (150-450); RED BLOOD COUNT 5.27 10^6/uL (4.00-5.40); WHITE BLOOD COUNT 6.7 10^3/uL (4.0-10.0)
[2020-07-15 10:49] LABS: HEMOGLOBIN A1c 5.6 %
[2020-07-15 11:13] LABS: ALBUMIN 3.9 GM/DL (3.2-5.2); ALT/SGPT 19 U/L (12-78); BILIRUBIN,TOTAL 0.5 MG/DL (0.2-1.0); BLOOD UREA NITROGEN 19 MG/DL (7-18); CALCIUM LEVEL 8.9 MG/DL (8.5-10.1); CARBON DIOXIDE LEVEL 30 MEQ/L (21-32); CHLORIDE LEVEL 107 MEQ/L (98-107); CHOLESTEROL LEVEL 247 MG/DL (<200); CHOLESTEROL RISK RATIO 3.528 (<5); CREATININE FOR GFR 0.86 MG/DL (0.55-1.30); FREE T4 1.08 NG/DL (0.76-1.46); GLOMERULAR FILTRATION RATE > 60.0 (>51); GLUCOSE, FASTING 94 MG/DL (70-100); HDL CHOLESTEROL 70 MG/DL (>40); LDL CHOLESTEROL 153 MG/DL (<100); NON-HDL-C 177 MG/DL; POTASSIUM SERUM 4.5 MEQ/L (3.5-5.1); SODIUM LEVEL 140 MEQ/L (136-145); THYROID STIMULATING HORMONE 0.562 uIU/ML (0.358-3.740); TOTAL 25(OH) VITAMIN D 22.8 NG/ML (30.0-100.0); TOTAL PROTEIN 7.2 GM/DL (6.4-8.2); TRIGLYCERIDES LEVEL 120 MG/DL (<150)
== END ==
LOC: M SFHCPLAZ 08:36
PROVIDERS: ATTEND Physician Assistant Medical
DX: E78.5 Hyperlipidemia, unspecified (principal); I10 Essential (primary) hypertension; E66.9 Obesity, unspecified; E55.9 Vitamin D deficiency, unspecified; Z79.899 Other long term (current) drug therapy
CPT/HCPCS: 36415; 80053; 80061; 82306; 83036; 83970; 84439; 84443; 85025; G0463

== ENCOUNTER → 2020-07-31 | Outpatient (REF) | payer MEDICARE, MEDICAID | LOC: M SFHCWAGY 17:11 | PROVIDERS: ATTEND Nurse Practitioner Family | DX: Z12.4 Encounter for screening for malignant neoplasm of cervix (principal) ==

== ENCOUNTER → 2020-07-31 | Outpatient (CLI) | payer MEDICARE, MEDICAID ==
--- NOTE | 2020-07-31 08:45 | REP ---
INDICATION: RIB PAIN ON L SIDE. COMPARISON: 11/09/2016 PA and lateral chest TECHNIQUE: Left ribs five views common PA chest single view FINDINGS: There is a minimally displaced fracture at the anterior tip of the left 10th rib. No other rib fractures are identified. PA chest: There is no pneumothorax, hemothorax or pulmonary contusion. Lung nagel are clear. Cardiac size is normal. The asif and mediastinum are unremarkable. There is scoliosis convex right at the thoracolumbar junction. There are surgical clips in the abdominal right upper quadrant. IMPRESSION: Minimally displaced fracture of the anterior tip of the left 10th rib. <Electronically signed by Rahul Sabillon > 07/31/20 0859
== END ==
LOC: M RAD 08:15
PROVIDERS: ATTEND Physician Assistant Medical
DX: S22.32XA Fracture of one rib, left side, initial encounter for closed fracture (principal); Z12.4 Encounter for screening for malignant neoplasm of cervix; W18.09XA Striking against other object with subsequent fall, initial encounter; Y92.9 Unspecified place or not applicable; Y99.9 Unspecified external cause status; R07.81 Pleurodynia
CPT/HCPCS: 71101; 87624; G0101; G0123

== ENCOUNTER → 2020-08-29 | Outpatient (CLI) | payer MEDICARE, MEDICAID ==
[~2020-08-29] MED LIST changes: +ALBU8.5H INH; +VITA1CAP4 PO
== END ==
LOC: M LABSMTC 10:07
PROVIDERS: ATTEND Anesthesiology
DX: Z01.818 Encounter for other preprocedural examination (principal); Z11.52 Encounter for screening for COVID-19

== ENCOUNTER 2020-09-03 07:41 | Day surgery (SDC) | payer MEDICARE, MEDICAID ==
[~2020-09-03] VITALS: Ht 152.4 cm; Wt 76.7 kg
[~2020-09-03 07:41] MED LIST changes: +NS 1,000 ML IV ONE
[2020-09-03] MEDS ORDERED: LIDOCAINE 2% 100MG/5ML SDV (FOR ANES.) As Ordered ONE (08:33)
[2020-09-03] MEDS ORDERED: propofoL 200 MG/20 ML VIAL As Ordered ONE (08:33)
--- NOTE | 2020-09-03 09:08 | ROOR ---
Patient Name: Fay Flores Procedure Date: 09/03/2020 8:45 AM Date of : 1960 Age: 59 Room: [facility] Gender: Female Note Status: Finalized Procedure: Colonoscopy Indications: High risk colon cancer surveillance: Personal history of colonic polyps Providers: Melecio William MD Referring MD: Bhavna GARNER Requesting Provider: Medicines: Monitored Anesthesia Care Complications: No immediate complications. Procedure: Pre-Anesthesia Assessment: - Prior to the procedure, a History and Physical was performed, and patient medications and allergies were reviewed. The patient is competent. The risks and benefits of the procedure and the sedation options and risks were discussed with the patient. All questions were answered and informed consent was obtained. Patient identification and proposed procedure were verified by the physician, the nurse and the anesthesiologist in the endoscopy suite. Mental Status Examination: alert and oriented. Airway Examination: normal oropharyngeal airway and neck mobility. Respiratory Examination: clear to auscultation. CV Examination: normal. Prophylactic Antibiotics: The patient does not require prophylactic antibiotics. Prior Anticoagulants: The patient has taken no previous anticoagulant or antiplatelet agents. ASA Grade Assessment: III - A patient with severe systemic disease. After reviewing the risks and benefits, the patient was deemed in satisfactory condition to undergo the procedure. The anesthesia plan was to use moderate sedation / analgesia (conscious sedation). Immediately prior to administration of medications, the patient was re-assessed for adequacy to receive sedatives. The heart rate, respiratory rate, oxygen saturations, blood pressure, adequacy of pulmonary ventilation, and response to care were monitored throughout the procedure. The physical status of the patient was re-assessed after the procedure. The Colonoscope was introduced through the anus and advanced to the sigmoid colon. The colonoscopy was performed with difficulty due to poor bowel prep with stool present. Findings: Hemorrhoids were found on perianal exam. A moderate amount of stool was found in the rectum, in the recto-sigmoid colon and in the sigmoid colon, precluding visualization. Lavage of the area was performed using a moderate amount, resulting in incomplete clearance with continued poor visualization. Impression: - Hemorrhoids found on perianal exam. - Stool in the rectum, in the recto-sigmoid colon and in the sigmoid colon. - No specimens collected. Recommendation: - Discharge patient to home (ambulatory). - Repeat colonoscopy at appointment to be scheduled because the bowel preparation was suboptimal. Procedure Code(s): --- Professional --- 15329, 53, Colonoscopy, flexible; diagnostic, including collection of specimen(s) by brushing or washing, when performed (separate procedure) Diagnosis Code(s): --- Professional --- Z86.010, Personal history of colonic polyps K64.9, Unspecified hemorrhoids CPT copyright 2019 [employer]. All rights reserved. The codes documented in this report are preliminary and upon plate corrector review may be revised to meet current compliance requirements. Melecio William MD Melecio William MD 09/03/2020 9:07:40 AM Electronically signed by Melecio William MD Number of Addenda: 0 Note Initiated On: 09/03/2020 8:45 AM Estimated Blood Loss: Estimated blood loss: none.
[2020-09-03 09:20] VITALS: BP 155/80
== END 2020-09-03 09:31 | disposition home or self-care (01) ==
LOC: M OPP 07:41
PROVIDERS: ATTEND Surgery
DX: Z12.11 Encounter for screening for malignant neoplasm of colon (principal); Z86.010 Personal history of colon polyps; K64.9 Unspecified hemorrhoids; I10 Essential (primary) hypertension; E78.5 Hyperlipidemia, unspecified; J45.909 Unspecified asthma, uncomplicated; G47.30 Sleep apnea, unspecified; F17.210 Nicotine dependence, cigarettes, uncomplicated; Z88.6 Allergy status to analgesic agent; Z79.51 Long term (current) use of inhaled steroids; Z79.899 Other long term (current) drug therapy

== ENCOUNTER → 2020-10-24 | Outpatient (CLI) | payer MEDICARE, MEDICAID ==
[~2020-10-24] MED LIST changes: -NS 1,000 ML IV ONE
== END ==
LOC: M LABSMTC 13:59
PROVIDERS: ATTEND Anesthesiology
DX: Z11.52 Encounter for screening for COVID-19 (principal)

== ENCOUNTER → 2022-03-31 | Outpatient (REF) | payer MEDICARE, MEDICAID ==
[~2022-03-31] MED LIST changes: +ALBU2.5V10 INH; -ALBU83IN INH
[2022-03-31 19:54] LABS: ALBUMIN 4.1 G/DL (3.2-5.2); ALT/SGPT 16 U/L (7.0-40); BILIRUBIN,DIRECT 0.1 MG/DL (<0.4); BILIRUBIN,TOTAL 0.4 MG/DL (0.3-1.2); CHOLESTEROL LEVEL 232 MG/DL (<200); CHOLESTEROL RISK RATIO 3.33 (<5); HDL CHOLESTEROL 69.5 MG/DL (>40); HIV 1&2 SCREEN CENTAUR NEGATIVE (NEGATIVE); LDL CHOLESTEROL 141.5 MG/DL (<100); NON-HDL-C 163 MG/DL; TOTAL PROTEIN 6.8 G/DL (5.7-8.2); TRIGLYCERIDES LEVEL 105 MG/DL (<150)
[2022-03-31 20:54] LABS: TOTAL 25(OH) VITAMIN D 21.8 NG/ML (20.0-100.0)
[2022-03-31 21:18] LABS: HEPATITIS C VIRUS ABY INDEX 0.1 INDEX (<0.8)
== END ==
LOC: M LAB REF 16:22
PROVIDERS: ATTEND Physician Assistant
DX: Z11.59 Encounter for screening for other viral diseases (principal); Z11.4 Encounter for screening for human immunodeficiency virus [HIV]; E55.9 Vitamin D deficiency, unspecified; E78.5 Hyperlipidemia, unspecified; Z12.4 Encounter for screening for malignant neoplasm of cervix
CPT/HCPCS: 80061; 80076; 82306; 86803; 87389; 87624; G0123

== ENCOUNTER → 2022-07-06 | Outpatient (CLI) | payer MEDICARE, MEDICAID | LOC: M PLAIMG 08:11 | PROVIDERS: ATTEND Physician Assistant | DX: M51.17 Intervertebral disc disorders with radiculopathy, lumbosacral region (principal) ==

== ENCOUNTER → 2022-07-13 | Outpatient (CLI) | payer MEDICARE, MEDICAID | LOC: M WHC 10:35 | PROVIDERS: ATTEND Physician Assistant | DX: Z12.31 Encounter for screening mammogram for malignant neoplasm of breast (principal) ==

== ENCOUNTER → 2022-09-02 | Outpatient (CLI) | payer MEDICARE, MEDICAID | LOC: M PLALAB 09-01 14:10 → M PLAIMG 09:47 | PROVIDERS: ATTEND Physician Assistant | DX: M19.011 Primary osteoarthritis, right shoulder (principal) ==

== ENCOUNTER → 2022-12-24 | Outpatient (REF) | payer MEDICARE, MEDICAID ==
[2022-12-24 18:15] LABS: HEMOGLOBIN A1c 5.7 % (4.0-6.0)
[2022-12-24 18:29] LABS: ALBUMIN 3.7 G/DL (3.2-5.2); ALKALINE PHOSPHATASE 74 U/L (46-116); ALT/SGPT 14 U/L (7.0-40); AST/SGOT 9 U/L (<34); BILIRUBIN,TOTAL 0.5 MG/DL (0.3-1.2); BLOOD UREA NITROGEN 16 MG/DL (9-23); CALCIUM LEVEL 8.9 MG/DL (8.3-10.6); CARBON DIOXIDE LEVEL 29 MMOL/L (20-31); CHLORIDE LEVEL 105 MMOL/L (98-107); CHOLESTEROL LEVEL 210 MG/DL (<200); CHOLESTEROL RISK RATIO 3.47 (<5); CREATININE FOR GFR 0.77 MG/DL (0.55-1.30); GLOMERULAR FILTRATION RATE > 60.0 (>45); GLUCOSE, FASTING 88 MG/DL (74-106); HDL CHOLESTEROL 60.4 MG/DL (>40); LDL CHOLESTEROL 122.2 MG/DL (<100); NON-HDL-C 149.6 MG/DL; POTASSIUM SERUM 5.2 MMOL/L (3.5-5.1); SODIUM LEVEL 139 MMOL/L (136-145); TOTAL PROTEIN 6.5 G/DL (5.7-8.2); TRIGLYCERIDES LEVEL 137 MG/DL (<150)
[2022-12-24 18:31] LABS: TOTAL 25(OH) VITAMIN D 22.4 NG/ML (20.0-100.0)
== END ==
LOC: M LAB REF 16:11
PROVIDERS: ATTEND Physician Assistant
DX: E55.9 Vitamin D deficiency, unspecified (principal); R73.9 Hyperglycemia, unspecified; E78.5 Hyperlipidemia, unspecified; Z79.899 Other long term (current) drug therapy

== ENCOUNTER → 2024-11-22 | Outpatient (CLI) | payer MEDICARE, MEDICAID ==
[2024-11-22 19:58] LABS: PLATELET COUNT, AUTOMATED 221 10^3/uL (150-450)
[2024-11-22 20:01] LABS: ALT/SGPT 17.0 U/L (7.0-40); AST/SGOT 24.0 U/L (<34); CALCIUM LEVEL 9.3 MG/DL (8.3-10.6); CARBON DIOXIDE LEVEL 28.0 MMOL/L (20-31); CHLORIDE LEVEL 102.0 MMOL/L (98-107); CHOLESTEROL LEVEL 238.0 MG/DL (<200); CHOLESTEROL RISK RATIO 3.5 (<5); CREATININE FOR GFR 0.87 MG/DL (0.55-1.30); GLOMERULAR FILTRATION RATE 74.4 (>45); LDL CHOLESTEROL 150.3 MG/DL (<100); NON-HDL-C 170.1 MG/DL; POTASSIUM SERUM 4.3 MMOL/L (3.5-5.1); SODIUM LEVEL 139.0 MMOL/L (136-145); TRIGLYCERIDES LEVEL 99.0 MG/DL (<150)
[2024-11-22 20:04] LABS: TOTAL 25(OH) VITAMIN D 31.0 NG/ML (20.0-100.0)
== END ==
LOC: M WUC 13:23
PROVIDERS: ATTEND Physician Assistant
DX: I10 Essential (primary) hypertension (principal); E55.9 Vitamin D deficiency, unspecified; E78.5 Hyperlipidemia, unspecified

== ENCOUNTER → 2025-02-01 | Outpatient (CLI) | payer MEDICARE, MEDICAID ==
[2025-02-01 14:07] LABS: CHOLESTEROL LEVEL 199.0 MG/DL (<200); CHOLESTEROL RISK RATIO 2.95 (<5); LDL CHOLESTEROL 108.9 MG/DL (<100); NON-HDL-C 131.7 MG/DL; TRIGLYCERIDES LEVEL 114.0 MG/DL (<150)
== END ==
LOC: M WUC 08:41
PROVIDERS: ATTEND Student in an Organized Health Care Education/Training Program
DX: E78.2 Mixed hyperlipidemia (principal)

== ENCOUNTER → 2025-03-12 | Outpatient (REF) | payer MEDICARE, MEDICAID ==
[~2025-03-12] MED LIST changes: +PRED20TA PO
== END ==
LOC: M LAB REF 17:04
PROVIDERS: ATTEND Nurse Practitioner Family
DX: J20.9 Acute bronchitis, unspecified (principal)

== ENCOUNTER 2025-03-14 03:08 | Emergency (ER) | payer MEDICARE, MEDICAID ==
[~2025-03-14] VITALS: Ht 152.4 cm; Wt 60.9 kg
[~2025-03-14 03:08] MED LIST changes: -PRED20TA PO
[2025-03-14 03:09] VITALS: TEMP 97.3
[2025-03-14 03:33] LABS: VENOUS BASE EXCESS 0.6 (-2.0-2.0); VENOUS HCO3 28.7 MMOL/L (23.0-27.0); VENOUS O2 SATURATION 53.5 % (60.0-80.0); VENOUS PARTIAL PRESSURE CO2 60.1 mmHg (38.0-50.0); VENOUS PARTIAL PRESSURE O2 29.5 mmHg (30.0-50.0); VENOUS PH 7.297 UNITS (7.330-7.430); VENOUS STANDARD HCO3 23.8 MMOL/L; VENOUS TOTAL CO2 30.6 MMOL/L (24.0-28.0)
[2025-03-14 03:36] LABS: BASO # 0.1 10^3/uL (0.0-0.2); BASO % 0.7 % (0.0-1.0); EOS # 0.1 10^3/uL (0.0-0.5); EOS % 1.5 % (0.0-3.0); LYMPH # 2.6 10^3/uL (1.5-5.0); LYMPH % 29.9 % (24.0-44.0); MONO # 0.9 10^3/uL (0.0-0.8); MONO % 10.4 % (2.0-8.0); NEUTROPHILS # 5.0 10^3/uL (1.5-8.5); NEUTROPHILS % 57.3 % (36.0-66.0); PLATELET COUNT, AUTOMATED 220 10^3/uL (150-450)
[2025-03-14 04:08] LABS: ABG BASE EXCESS 1.8 (-2.0-2.0); ABG HCO3 27.3 MMOL/L (22.0-26.0); ABG O2 SATURATION 93.9 % (95.0-99.0); ABG PARTIAL PRESSURE CO2 45.8 mmHg (35.0-45.0); ABG PARTIAL PRESSURE O2 72.1 mmHg (75.0-100.0); ABG STANDARD HCO3 26.0 MMOL/L. (22.0-26.0); ABG TOTAL CO2 28.7 MMOL/L (23.0-31.0); ABG pH (ARTERIAL) 7.393 UNITS (7.350-7.450)
[2025-03-14] MEDS: IPRATROPIUM 0.5 MG/ALBUTEROL 2.5 MG INH SOL UD 3 ML NEB SCH (04:09)
[2025-03-14 04:16] LABS: ALT/SGPT 17 U/L (7.0-40); AST/SGOT 15 U/L (<34); CALCIUM LEVEL 9.1 MG/DL (8.3-10.6); CARBON DIOXIDE LEVEL 30 MMOL/L (20-31); CHLORIDE LEVEL 107 MMOL/L (98-107); CK-MB VALUE MASS 1.5 NG/ML (<3.6); CPK CREATINE PHOSPHOKINASE 105 U/L (34-145); CREATININE FOR GFR 0.88 MG/DL (0.55-1.30); GLOMERULAR FILTRATION RATE 73.3 (>45); MB/CK RELATIVE INDEX 1.42 (< OR =4); POTASSIUM SERUM 4.5 MMOL/L (3.5-5.1); SODIUM LEVEL 144 MMOL/L (136-145)
[2025-03-14 04:22] LABS: THYROXINE (T4) 10.0 UG/DL (4.5-10.9)
[2025-03-14 06:49] VITALS: O2SAT 90
[2025-03-14] MEDS ORDERED: PRED20TA PO (06:57)
[2025-03-14 07:00] VITALS: BP 114/57; O2SAT 88
== END 2025-03-14 07:22 | disposition home or self-care (01) ==
LOC: M ED 03:08
DX: J20.6 Acute bronchitis due to rhinovirus (principal); I10 Essential (primary) hypertension; J44.9 Chronic obstructive pulmonary disease, unspecified; G47.33 Obstructive sleep apnea (adult) (pediatric); F17.200 Nicotine dependence, unspecified, uncomplicated; Z88.6 Allergy status to analgesic agent; Z79.52 Long term (current) use of systemic steroids; Z79.02 Long term (current) use of antithrombotics/antiplatelets; Z79.899 Other long term (current) drug therapy